=== PATIENT | male | born 1945 | race Caucasian/White ===

== ENCOUNTER 2023-12-09 09:05 | Day surgery (SDC) | payer MEDICARE, SELFPAY ==
[2023-12-09] VITALS (27 sets, daily range): BP systolic 119–153; BP diastolic 62–85; PULSE 62–94; RESP 14–16; TEMP 35.8–36.6; O2SAT 90–99; BMI 25.7
--- OUTSIDE RECORDS SUMMARY | 2023-12-09 09:08 | XMS_ITS | Encounter Summary ---
Author Name Unknown Organization [facility] Address [address] [place] [address] Care Team Providers Care Painting Contractor Name Role Phone Winston Fan M.D. Primary Care Kyle jaychilo Encounter Details Date Type Department Care Team (Late st Contact Info) Description 10/15/2023 Orders Only Department of Orthopedic Surgery in [place], [place] [address] [place] [address] [phone] Mera Torres P.A.-Erlin., P.A. [address] [phone] Social History Tobacco Use Types Packs/Day Years Used Date Smoking Tobacco: Former Cigarettes 0 07/28/1965 - 07/28/1982 Passive Smoke Exposure: Past Smokeless Tobacco: Never Alcohol Use Standard Drinks/Week Comments No 0 (1 standard drink = 0.6 oz pur e alcohol) Humiliation, Afraid, Rape, and Kick questionnair e Answer Date Recorded Within the last year, have y ou been afraid of your partner or ex-partner? No 10/28/2022 Within the last year, have y ou been humiliated or emotionally abused in other ways by your partner or ex-partner? No Within the last year, have y ou been kicked, hit, slapped, or otherwise physically hurt by your partner or ex-partner? No 10/28/2022 Within the last year, have y ou been raped or forced to have any kind of sexual activity by your partner or ex-partner? No 10/28/2022 Social Connection and Isolat ion Panel [NHANES] Answer Date Recorded In a typical week, how many times do you talk on the phone with family, friends, or neighbors? Three times a week 10/28/2022 How often do you get togethe r with friends or relatives? Twice a week 10/28/2022 How often do you attend chur ch or taoist services? More than 4 times per year 10/28/2022 Do you belong to any clubs o r organizations such as jainism groups, unions, fraternal or athletic groups, or school groups? No 10/28/2022 How often do you attend meet ings of the clubs or organizations you belong to? Never 10/28/2022 Are you , , di vorced, , never , or living with a partner? 10/28/2022 AUDIT-C Answer Date Recorded Q1: How often do you have a drink containing alc ohol? Never 10/28/2022 Average Number of Drinks Not on file 023 Frequency of Binge Drinking Not on file 09/2022 Overall Financial Resource Strain (CARDIA) Answe r Date Recorded How hard is it for you to pa y for the very basics like food, housing, medical care, and heating? Not hard at all 10/28/2022 PHQ-2 Answer Date Recorded PHQ-2 Score 0 09/29/2023 [facility] Occupat ional [facility] - Occupational Stress Questionnaire Answer Date Recorded Do you feel stress - tense, restless, nervous, or anxious, or unable to sleep at night because your mind is troubled all the time - these days? Not at all 10/28/2022 Exercise Vital Sign Answer Date Recorde d On average, how many days pe r week do you engage in moderate to strenuous exercise (like a brisk walk)? 7 days 10/28/2022 On average, how many minutes do you engage in exercise at this level? 30 min 10/28/2022 Hunger Vital Sign Answer Date Recorded Within the past 12 months, y ou worried that your food would run out before you got the money to buy more. Never true 10/29/19 Within the past 12 months, t he food you bought just didn't last and you didn't have money to get more. Never true 10/28/2022 PRAPARE - Transportation Answer Date Re corded In the past 12 months, has l ack of transportation kept you from medical appointments or from getting medications? No 11/26 In the past 12 months, has l ack of transportation kept you from meetings, work, or from getting things needed for daily living? No 12/23/2022 Housing Stability Vital Sign Answer Kameron e Recorded In the last 12 months, was t here a time when you were not able to pay the mortgage or rent on time? No 10/28/2022 In the last 12 months, how many places have you lived? 1 10/28/2022 In the last 12 months, was t here a time when you did not have a steady place to sleep or slept in a longterm (including now)? No 10/28/2022 Nutrition Answer Date Recorded Nutrition: EVOO Fat Source Yes 10/28 On average, how many serving s of fruits and vegetables do you eat per day (serving size is equal to 1 cup or approximately the size of a tennis ball)? 4-5 10/28/2022 Dental Answer Date Recorded Dental: Regular Dentist Yes 10/17/19 Employment Answer Date Recorded Employment status Retired 10/28/2022 Education Answer Date Recorded What is the highest level of school you have completed or the highest degree you have received? Bachelor's degree (e.g., BA, AB, BS) 01/31/2019 Sex and Gender Information Value Date Recorded Sex Assigned at Male 05/18/2018 7:14 PM CDT Gender Identity Male 05/18/2018 7:14 PM CDT Sexual Orientation Straight 05/18/2018 7: 14 PM CDT documented as of this encounter Plan of Treatment Upcoming Encounters Date Type Department Care Team (Late st Contact Info) Description 12/31/2023 10:10 AM CDT Appointment Department of Laboratory Medicine in [address] [phone] Winston Fan M.B.BEdna, MChiquis [address] [place] [address] [phone] 01/06/2024 2:30 PM CDT Office Visit Department of Ophthalmology in [place], [place] [address] [place] [phone] Rey Pabon Jr., M.D. [address] [place] [phone] documented as of this encounter Visit Diagnoses Not on filedocumented in this encounter Additional Health Concerns Assessment Noted Time PHQ-9 Depression Total Score: 0 06/23/20 19 2:38 PM POSTPARTUM NURSE documented as of this encounter Care Teams Painting Contractor Relationship Specialty Start Date End Date Winston Fan M.B.B.SMelinda, MMeg. [address] [facility] [place] [phone] PCP - General Family Medicine 06/20/23 documented as of this encounter
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
--- OUTSIDE RECORDS SUMMARY | 2023-12-09 09:08 | XMS_ITS ---
Author Name Unknown Organization [facility] Address [address] [place] [address] Care Team Providers Care Retort Furnace Helper Name Role Phone Unavailable Unavailable Unavailable Surgery Details Not on file Complications Check Surgery Details section. Procedure Estimated Blood Loss Check Surgery Details section. Procedure Findings Check Surgery Details section. Procedure Specimens Taken Check Surgery Details section.
--- OUTSIDE RECORDS SUMMARY | 2023-12-09 09:08 | XMS_ITS | Clinical Summary ---
Author Name Unknown Organization [facility] Address [address] [place] [address] Care Team Providers Care Marine Equipment Sales Engineer Name Role Phone Winston Fan M.D. Primary Care Kyle riderjuan Source Comments Patient records contain information from all sites at [facility]. For routine questions regarding patient records, call [phone] during business hours, M-F 8:00 AM - 5:00 PM Central Time. Record requests for emergency care only can be directed to [phone] at any time.[facility] Allergies Active Allergy Reactions Criticality Noted Date [...] mouth daily. Active blood sugar diagnostic strips ([employer] Ultra Test Strips)Indications :Diabetes Mellitus Type 2 [...] due to elevated LDL. Atorvastatin stopped in 2019 due to elevated CPK and myalgias. Elevated CPK evaluated by Rheumatology. 01/2019. ALFONSO, inflammatory markers and exam normal. EMGs w no evidence of muscle disease or myositis. Pravastatin was tried after the EMG in 2018. 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 Encounters Date Type Department Care Team Description 11/25/2023 3:37 PM CDT - 11/25/2023 11:59 PM CDT Hospital Encounter Department of Laboratory Medicine in [place], [place] [address] [place] [address] Winston Fan M.B.B.SMelinda, M.DMelinda Preoperative Exam Discharge Disposition: Home or Self Care 11/25/2023 3:00 PM CDT Office Visit Department of [facility], [facility], in [place], [place] [address] [place] [address] Winston Fan M.B.BMelindaSMelinda, M.DMelinda Preoperative Exam (Primary Dx) 10/15/2023 Orders Only Department of Orthopedic Surgery in [place], [place] [address] [place] [address] Mera Torres P.A.-C., P.A. 09/29/2023 10:30 AM RESIN PAINTER Comprehensive Visit Department of Family Medicine, [facility], in [place], [place] [address] [place] [address] Winston Fan M.B.B.S., M.D. Diabetes Mellitus Type 2 (HCC); Benign Prostatic Hyperplasia Without Obstruction; Diabetes Mellitus Type 2 Hyperglycemia (HCC); Chronic Kidney Disease (CKD), Stage 3a Glomerular Filtration Rate (GFR) 45 To 59 (HCC) 09/25/2023 1:27 PM RESIN PAINTER - 09/25/2023 11:59 PM RESIN PAINTER Hospital Encounter Department of Laboratory Medicine in [address] [phone] Cata Vazquez P.A.-C. Diabetes Mellitus Type 2 (HCC) Discharge Disposition: Home or Self Care from Last 3 Months Immunizations Name Administration Dates Next Due DT, [...] quad (FLUZONE/FLUARIX) (6 months and older)(PF) 05/13/2009 Family History Medical History Relation Name Comments Allergies Brother 1 Danial Hay fever Bipolar disorder Brother 1 Danial Leukemia Brother 2 Don stem cell trans plant Bladder cancer Brother 3 Og (Andrew) No Known Problems Daughter Emma Blindness Father Piter at end of life Diabetes Father Piter late onset Prostate cancer Father Piter Rheum arthritis Father Piter Heart failure Mother Afshan Hyperlipidemia Mother Afshan Hypertension Mother Afshan Lymphoma Mother Afshan Other cancer Mother Afshan Thyroid cancer Thyroid cancer Mother Afshan No Known Problems Sister Debbie Hay fever Son 1 Patricia No Known Problems Son 2 Kirk Relation Name Status Comments Brother 1 Danial Alive Brother 2 Don Alive Brother 3 Og (Andrew) Alive Daughter Emma Alive Father Piter Mother Afshan Sister Debbie Alive Son 1 Patricia Alive Son 2 Kirk Alive Social History Tobacco Use Types Packs/Day Years Used Date Smoking Tobacco: Former Cigarettes 0 07/28/1965 - 07/28/1982 Passive Smoke Exposure: Past Smokeless Tobacco: Never Tobacco Cessation:Counseling Given: Not Answered Alcohol Use Standard Drinks/Week Comments No 0 (1 standard drink = 0.6 oz pur e alcohol) [facility] [employer] Answer Date Recorded In the past 12 months has e [employer], gas, oil, or water [employer] threatened to shut off services in your [...] often do you attend chur ch or synagogue services? More than 4 times per year 10/28/2022 Do you belong to any clubs o r organizations such as quaker groups, unions, fraternal or athletic groups, or [...] Answer Date Recorded PHQ-2 Score 0 09/29/2023 [facility] of Occupat ional Health - Occupational Stress [...] money to buy more. Never true 11/19/19 24 Within the past 12 months, t he [...] your living situation today? I have a [facility] place to live 11/19/2023 Education Answer Date [...] CDT Appointment Department of Laboratory Medicine in [place], [place] [address] [place] [phone] Winston Fan M.B.B.SMelinda, M.D. [address] [place] [phone] 01/06/2024 2:30 PM CDT Office Visit Department of Ophthalmology in [place], [place] [address], [place] [address] Rey Pabon Jr., M.D. [address] [place] [address] Health Maintenance Due Date Last Done Comments Hepatitis B Vaccines (1 of 3 - Risk 3-dose series) 2007 DTaP,Tdap,and Td Vaccines (3 - Td or Tdap) 04/15/2023 04/15/2013, 05/11/2003 COVID-19 Vaccine (2022-2 4 season) 2023 05/08/2023, 04/26/2022, 02/04/2022, Additional history exists Creatinine Level (Kidney Fun ction Test) 09/26/2023 09/25/2022, 11/01/2021, 04/26/2021, Additional history exists Dilated Eye Exam 12/31/2023 12/30/2022, 08/2021, 08/29/2020, Additional history exists Hemoglobin A1C 03/25/2024 09/25/2023, 02/26, 09/25/2022, Additional history exists Visit: Medicare Annual Wellness 03/28/2024 3 Urine Albumin 06/17/2024 06/17/2023, 12/0 07/2021, 04/26/2021, Additional history exists Diabetic Office Visit with F oot Exam 09/28/2024 09/29/2023, 11/05/2021, 10/11/2020, Additional history exists Visit: Chronic Disease, age 18+ 09/28/2024 Office Visit for Blood Press ure Check / Re-check 11/24/2024 11/25/2023 Colonoscopy Discontinued 12/05/2016 Colonoscopy Discontinued 12/05/2016 Colorectal Cancer Screening Discontinued Colorectal Cancer Surveillance Discontinued Hepatitis C Screening Completed 05/22/2018 Pneumococcal vaccine (65+ years) Completed 05/22/2018, 06/21/2015, 08/12/2006 Zoster Vaccines Completed 02/04/2022, 09/25, 06/12/2014 Influenza Vaccine Completed 05/05/2023, , 04/30/2021, Additional history exists Depression Screening (Annual PHQ-2) Completed 09/29/2023, 09/29/2023 Fall Risk Screen (Annual) Completed 09/29/[address] Colonography Discontinued Cologuard Discontinued FIT Discontinued Medical Devices Implanted Type Area Pig Breeder Device Identifier Shelf Expiration Date Model / Serial / Lot Mesh Or Patch Mesh or Patch Bilateral: Abdomen Description:Inguinal hernia repairs x 2 Procedures Procedure Name Priority Date/Time Associated Diagnosis Comments ECG Routine 11/25/2023 3:44 PM CDT Preoperative Exam HEMOGLOBIN A1C, B Routine 09/25/2023 1:3 3 PM RESIN PAINTER Diabetes Mellitus Type 2 (HCC) ALBUMIN, RANDOM, U Routine 06/17/2023 2: 33 PM RESIN PAINTER Diabetes Mellitus Type 2 (HCC) BASIC METABOLIC PANEL, S/P Routine 09/25/2022 11:40 AM RESIN PAINTER Diabetes Mellitus Type 2 (HCC) HCV AB SCRN W/REFLEX TO HCV PCR, S Routine 05/22/2018 12:31 PM CDT Screening Test Laboratory from Last 3 Months or Most Recently Relevant to Health Maintenance Results * ECG 12 Lead (11/25/2023 3:44 PM CDT) Ventricular Rate ECG/Min 64 BPM MUSE ME Interval 160 ms MUSE QRSD Interval 142 ms MUSE QT Interval 426 ms MUSE QTC Interval 439 ms MUSE P [place] 66 degrees MUSE R [place] 49 degrees MUSE T Wave [place] 4 degrees MUSE 11/25/2023 3:44 PM CDT [...] Lehman Winston Marshall M.D. ECG ORD ERABLES Performing Organization Address City/[facility]/ZIP Co de Phone Number MUSE NA * (ABNORMAL) Hemoglobin A1c (09/25/2023 1:33 PM RESIN PAINTER) Hemoglobin A1c, B 7.2(H) 4.2 - 5.6 % 09/25/2023 6:13 PM RESIN PAINTER OWAT Comment: Hemoglobin A1c values greater than or equal to 6.5 percent are diagnostic for diabetes mellitus. ??Diagnosis should be confirmed by repeat testing. ??In diabetic patients, HbA1c goals should be discussed with healthcare provider. Blood (Blood, Venous) 09/25/2023 1:33 PM RESIN PAINTER 09/25/2023 5:49 PM RESIN PAINTER Cata Vazquez P.A.-C. LAB BLOOD ADD-O N Performing Organization Address [facility] Co de Phone Number [facility] [address] [place] [address], [facility] OWAT [facility] in [place] [address] [place] [address] * Albumin, Random, Urine (06/17/2023 2:33 PM RESIN PAINTER) Microalbumin <12.0 mg/L 06/17/2023 4:41 PM RESIN PAINTER OWAT Comment:If clinically indica valdo, contact the lab for additional testing. Creatinine 73 mg/dL 06/17/2023 4:41 PM RESIN PAINTER OWAT Albumin/Creatinine Ratio <16 <17 mg/g 06/17/2023 4:41 PM RESIN PAINTER OWAT Comment: This ratio may not correspond with the reference range because one or both of the values used to calculate the ratio was above or below the quantification limits. Urine (Urine, Midstream) 06/17/2023 2:33 PM RESIN PAINTER 06/17/2023 3:41 PM RESIN PAINTER Cata Vazquez P.A.-C. LAB URINE ORDER WILLEM [facility] [address] [place] [address], [facility] OWAT [facility] in [place] [address] [place] [address] * (ABNORMAL) Basic Metabolic Panel (09/25/2022 11:40 AM RESIN PAINTER) Potassium, P 5.3(H) 3.6 - 5.2 mmol/L 09/25/2022 1:55 PM RESIN PAINTER OWAT Sodium, P 140 135 - 145 mmol/L 09/25/2022 1:55 PM RESIN PAINTER OWAT Chloride, P 105 98 - 107 mmol/L 09/25/2022 1:55 PM RESIN PAINTER OWAT Bicarbonate, P 26 22 - 29 mmol/L 09/25/2022 1:55 PM RESIN PAINTER OWAT Anion Gap, P 9 7 - 15 09/25/2022 1:55 PM RESIN PAINTER OWAT BUN (Blood Urea Nitrogen), P 22 8 - 24 mg/dL 09/25/2022 1:55 PM RESIN PAINTER OWAT Creatinine 1.17 0.74 - 1.35 mg/dL 09/25/2022 1:55 PM RESIN PAINTER OWAT Estimated GFR (eGFR) 65 >=60 mL/min/BSA 09/25/2022 1:55 PM RESIN PAINTER OWAT Comment: Estimated GFR calculated using the 2020 CKD_EPI creatinine equation. Calcium, Total, P 9.6 8.8 - 10.2 mg/dL 09/25/2022 1:55 PM RESIN PAINTER OWAT Glucose, P 111 70 - 140 mg/dL 09/25/2022 1:55 PM RESIN PAINTER OWAT Blood (Blood, Venous) 09/25/2022 11:40 AM RESIN PAINTER 09/25/2022 1:17 PM RESIN PAINTER Cata Vazquez P.A.-C. LAB BLOOD ADD-O N [facility] [address] [facility] [place] [address], [place] OWAT [facility] in [place] [address] [facility] [place] [address] * HCV Ab Scrn w/Reflex to HCV PCR, Serum (05/22/2018 12:31 PM CDT) HCV Ab Screen, S Negative Negative 05/23/2018 9:19 AM CDT [facility] Comment:Mrdsjs-wh-smhetq rat io is <1.00. Blood (Blood, Venous) 05/22/2018 12:31 PM CDT 05/23/2018 6:57 AM CDT Terra Edgar M.D. LAB MICROBIOLOGY - B LOOD ORDERABLES [facility] [address] [place] [address] from Last 3 Months or Most Recently Relevant to Health Maintenance Care Teams Marine Equipment Sales Engineer Relationship Specialty Start Date End Date Winston Fan M.B.BMelindaSMelinda, MMeg. [address] [place] [address] [place] [phone] PCP - General Family Medicine 06/20/23
--- OUTSIDE RECORDS SUMMARY | 2023-12-09 09:08 | XMS_ITS | Encounter Summary ---
Author Name Unknown Organization [facility] Address [address] [place] [address] Care Team Providers Care Master Electrician Name Role Phone Winston Fan M.D. Primary Care P shellie Reason for Referral * Outpatient (Routine) - Closed Specialty Diagnoses / Procedures Referred By Richardson t Referred To Contact Diagnoses Preoperative Exam Procedures ECG 12 Lead Winston Fan M.B.B.S., M.D. [address] [place] [address] [facility] Referral ID Status Reason Start Date Expiration Date Visits Re quested Visits Authorized [id number] Closed 11/25/2023 11/24/2024 1 1 Reason for Visit * Outpatient (Routine) - Closed Specialty Diagnoses / Procedures Referred By Richardson jules Referred To Contact Diagnoses Preoperative Exam Procedures ECG 12 Lead Winston Fan M.B.B.S., M.D. [address] [place] [address] [facility] Referral ID Status Reason Start Date Expiration Date Visits Re quested Visits Authorized [id number] Closed 11/25/2023 11/24/2024 1 1 Encounter Details Date Type Department Care Team (Latest Contact Info) Description 11/25/2023 3:37 PM CDT - 11/25/2023 11:59 PM CDT Hospital Encounter Department of Laboratory Medicine in [place], [place] [address] [facility] [place] [phone] Winston Fan M.B.B.S., M.D. [address] [facility] [address] Preoperative Exam Discharge Disposition: Home or Self Care Social History Tobacco Use Types Packs/Day Years Used Date Smoking Tobacco: Former Cigarettes 0 07/28/1965 - 07/28/1982 Passive Smoke Exposure: Past Smokeless Tobacco: Never Alcohol Use Standard Drinks/Week Comments No 0 (1 standard drink = 0.6 oz pur e alcohol) [facility] [employer] Answer Date Recorded In the past 12 months has [employer], gas, oil, or water [employer] threatened to shut off services in your [...] week 10/28/2022 How often do you attend [facility] or oriental orthodox services? More than 4 times per year 10/28/2022 Do you belong to any clubs o r organizations such as mu-ism groups, unions, fraternal or athletic groups, or [...] Answer Date Recorded PHQ-2 Score 0 09/29/2023 [facility] of Occupat ional Health - Occupational [...] PM CDT documented as of this encounter Medications at Time of Discharge Medication Sig Dispensed Refills Start Date End Date aspirin [address] tablet Take 81 mg by mouth daily. blood sugar diagnostic strips ([employer] Ultra Test Strips)Indications:Paty betes Mellitus Type 2 (HCC) USE 1 STRIP TO CHECK GLUCOSE ONCE DAILY 100 each 3 05/13/2023 COQ10, UBIQUINOL, ORAL Take 300 mg by mouth daily. cyanocobalamin (vitamin B-12) 50 mcg tablet Take 1 tablet (50 mcg total) by mouth daily. 90 tablet 3 05/01/2021 ezetimibe (ZETIA) 10 mg tabletIndications:Hype rlipidemia Take 1 tablet by mouth once daily 90 tablet 06/19/2023 finasteride (PROSCAR) 5 mg tabletIndications:Gómez gn Prostatic Hyperplasia Without Obstruction Take 1 tablet (5 mg total) by mouth daily. 90 tablet 3 09/29/2023 09/28/2024 Jardiance 25 mg tabletIndications:Diab etes Mellitus Type 2 (HCC) TAKE 1 TABLET BY MOUTH IN THE MORNING BEFORE BREAKFAST 90 tablet 3 02/04/2023 lancing device (BD LANCET DEVICE) misc 1 each daily. 1 each 07/03/2018 metFORMIN (GLUCOPHAGE) 1,000 mg tabletIndications:Diab etes Mellitus Type 2 (HCC) take 1 tablet by mouth twice daily with meals 180 tablet 3 08/08/2023 naproxen sodium (ALEVE/ANAPROX) 220 mg tablet Take 220 mg by mouth as needed for pain. tamsulosin (FLOMAX) 0.4 mg 24 hr capsuleIndications:Anoop ign Prostatic Hyperplasia Without Obstruction Take 2 capsules (0.8 mg total) by mouth daily. 180 capsule 3 09/29/2023 documented as of this encounter Plan of Treatment Upcoming Encounters Date Type Department Care Team (Late st Contact Info) Description 12/31/2023 10:10 AM CDT Appointment Department of Laboratory Medicine in [place], [place] [address] [place] [phone] Winston Fan M.B.B.S., M.D. [address] [place] [phone] 01/06/2024 2:30 PM CDT Office Visit Department of Ophthalmology in [place], [place] [address], [place] [phone] Rey Pabon Jr., M.D. [address] [address] documented as of this encounter Procedures Procedure Name Priority Date/Time Associated Diagnosis Comments ECG Routine 11/25/2023 3:44 PM CDT Preoperative Exam documented in this encounter Results * ECG 12 Lead (11/25/2023 3:44 PM CDT) Ventricular Rate ECG/Min 64 BPM MUSE DE Interval 160 ms MUSE QRSD Interval 142 ms MUSE QT Interval 426 ms MUSE QTC Interval 439 ms MUSE P [place] 66 degrees MUSE R [place] 49 degrees MUSE T Wave [place] 4 degrees MUSE 11/25/2023 3:44 PM CDT [...] Marshall M.D. ECG ORD ERABLES MUSE NA documented in this encounter Visit Diagnoses Diagnosis Preoperative Exam documented in this encounter Additional Health Concerns Assessment Noted Time PHQ-9 Depression Total Score: 0 06/23/20 19 2:38 PM EQUIPMENT HIRE MANAGER documented as of this encounter Care Teams Master Electrician Relationship Specialty Start Date End Date Winston Fan M.B.B.S., M.D. [address] [place] [phone] PCP - General Family Medicine 06/20/23 documented as of this encounter
--- OUTSIDE RECORDS SUMMARY | 2023-12-09 09:08 | XMS_ITS | Encounter Summary ---
Author Name Unknown Organization [facility] Address [address] [place] [address] Care Team Providers Care Exchange Operator Name Role Phone Winston Fan M.D. Primary Care Kyle jaychilo Encounter Details Date Type Department Care Team (Latest Contact Info) Description 09/25/2023 1:27 PM PAPER ROLLER - 09/25/2023 11:59 PM PAPER ROLLER Hospital Encounter Department of Laboratory Medicine in [place], [place] [address] [place] [phone] Cata Vazquez P.A.-C. [address] [place] [phone] Diabetes Mellitus Type 2 (HCC) Discharge Disposition: Home or Self Care Social [...] often do you attend chur ch or muslim services? More than 4 times per year 10/28/2022 Do you belong to any clubs o r organizations such as worship groups, unions, fraternal or athletic groups, or [...] PHQ-2 Answer Date Recorded PHQ-2 Score 0 09/25/2023 [facility] of Occupat ional Health - Occupational [...] place to sleep or slept in a half-way (including now)? No 10/28/2022 Nutrition Answer Date [...] by mouth daily. blood sugar diagnostic strips ([employer] Ultra Test Strips)Indications:Paty betes Mellitus Type 2 [...] by mouth once daily 90 tablet 06/19/2023 Jardiance 25 mg tabletIndications:Diab etes Mellitus Type [...] mg by mouth as needed for pain. finasteride (PROSCAR) 5 mg tabletIndications:Gómez gn Prostatic Hyperplasia Without Obstruction Take 1 tablet by mouth once daily 90 tablet 3 04/04/2023 09/29/2023 tamsulosin (FLOMAX) 0.4 mg 24 hr capsule Take 2 capsules by mouth once daily 180 capsule 3 08/24/2023 09/29/2023 documented as of this encounter Miscellaneous Notes * Result Encounter Note - Winston Fan M.B.B.S., M.D. - 09/26/2023 9:03 AM CST A1c shows no significant change from 6 months ago. Please continue with a low- carbohydrate diet. Please continue to be consistent with medications and exercise as tolerated. R ROLLER documented in this encounter Plan of Treatment Upcoming Encounters Date Type Department Care Team (Late st Contact Info) Description 12/31/2023 10:10 AM CDT Appointment Department of Laboratory Medicine in [address] [phone] Winston Fan M.B.B.S., M.D. [address] [place] [address] 01/06/2024 2:30 PM CDT Office Visit Department of Ophthalmology in [place], [place] [address] [place] [address] Rey Pabon Jr., M.D. [address] [place] [address] documented as of this encounter Procedures Procedure Name Priority Date/Time Associated Diagnosis Comments HEMOGLOBIN A1C, B Routine 09/25/2023 1:3 3 PM PAPER ROLLER Diabetes Mellitus Type 2 (HCC) documented in this encounter Results * (ABNORMAL) Hemoglobin A1c (09/25/2023 1:33 PM PAPER ROLLER) Hemoglobin A1c, B 7.2(H) 4.2 - 5.6 % 09/25/2023 6:13 PM PAPER ROLLER OWAT Comment: Hemoglobin A1c values greater than or equal to 6.5 percent are diagnostic for diabetes mellitus. ??Diagnosis should be confirmed by repeat testing. ??In diabetic patients, HbA1c goals should be discussed with healthcare provider. Blood (Blood, Venous) 09/25/2023 1:33 PM PAPER ROLLER 09/25/2023 5:49 PM PAPER ROLLER Cata Vazquez P.A.-C. LAB BLOOD ADD-O N [facility] [address] [place] [address], [facility] OWAT [facility] [place] [address] [place] [address] documented in this encounter Visit Diagnoses Diagnosis Diabetes Mellitus Type 2 (HCC) documented in this encounter Additional Health Concerns Assessment Noted Time PHQ-9 Depression Total Score: 0 06/23/20 19 2:38 PM PAPER ROLLER documented as of this encounter Care Teams Exchange Operator Relationship Specialty Start Date End Date Winston Fan M.B.BMelindaSMelinda, M.D. [address] [place] [address] [place] [phone] PCP - General Family Medicine 06/20/23 documented as of this encounter
--- OUTSIDE RECORDS SUMMARY | 2023-12-09 09:08 | XMS_ITS | Encounter Summary ---
Author Name Unknown Organization [facility] Address [address] [place] [address] Care Team Providers Care Fast Foods Worker Name Role Phone Winston Fan M.D. [facility] Reason for Referral * Outpatient (Routine) - Closed Specialty Diagnoses / Procedures Referred By Richardson jules Referred To Contact Diagnoses Preoperative Exam Procedures ECG 12 Lead Winston Fan M.B.B.S., M.D. [address] [place] [phone] [facility] Referral ID Status Reason Start Date Expiration Date Visits Re quested Visits Authorized [id number] Closed 11/25/2023 11/24/2024 1 1 Reason for Visit * Reason Comments Pre-op Exam Hip surgery (right) at the [facility] on 12/09/[address] Vasques. Fax notes to: [phone]. * Appointment Request (Routine) - Closed Specialty Diagnoses / Procedures Referred By Richardson jules Referred To Contact Family Medicine Referral ID Status Reason Start Date Expiration Date Visits Re quested Visits Authorized [id number] Closed 11/04/2023 11/03/2024 1 1 Encounter Details Date Type Department Care Team (Late st Contact Info) Description 11/25/2023 3:00 PM CDT Office Visit Department of Family Medicine, [facility], in [place], [place] [address] [facility] [phone] Winston Fan M.B.B.S., M.D. [address] [facility] [place] [phone] Preoperative Exam (Primary Dx) Social History Tobacco Use Types Packs/Day Years Used Date Smoking Tobacco: Former Cigarettes 0 07/28/1965 - 07/28/1982 Passive Smoke Exposure: Past Smokeless Tobacco: Never Tobacco Cessation:Counseling Given: Not Answered Alcohol Use Standard Drinks/Week Comments No 0 (1 standard drink = 0.6 oz pur e alcohol) [facility] [employer] Answer Date Recorded In the past 12 months has e [employer], gas, oil, or water [employer] threatened to shut off services in your [...] often do you attend chur ch or faith services? More than 4 times per year 10/28/2022 Do you belong to any clubs o r organizations such as christian groups, unions, fraternal or athletic groups, or [...] Answer Date Recorded PHQ-2 Score 0 09/29/2023 [facility] - Occupational Stress Questionnaire Answer Date Recorded [...] your living situation today? I have a [place] place to live 11/19/2023 Education Answer [...] PM CDT documented as of this encounter Last Filed Vital Signs Vital Sign Reading [...] oz) 11/25/2023 2:53 P M CDT Height - - Body Mass Index 27.04 05/06/2023 1:46 PM CDT documented in this encounter Patient Instructions * Patient Instructions* Winston Fan M.B.B.S., M.D. - 11/25/2023 3:00 PM CDT Fasting: Must be NPO for 8 hours preoperatively. (Nothing to eat after dinner). Hold Jardiance the morning of surgery. Hold metformin 48 hours prior to surgery and restart 48 hours after surgery. Hold aspirin 7 days prior to surgery. Please avoid Naproxen for 5 days prior to surgery. documented in this encounter H&P Notes * Winston Fan M.B.B.S., M.D. - 11/25/2023 3:00 PM CDT Adult PRE-OP Evaluation SUBJECTIVE HISTORY OF PRESENT ILLNESS Raymond Olmstead, 1945 presents for pre-operative evaluation and assessment as requested byDr. Vasques. Proposed procedure: Right hip replacement Date of Surgery/ Procedure: 12/09/2023 Hospital/Surgical Facility: [place] [address] Phone: Primary Physician: Rolando Purcell M.D. Type of Anesthesia Anticipated: General anesthesia History of anesthesia complications: NONE} History of abnormal bleeding: NONE History of blood transfusions: NONE PREOPERATIVE QUESTIONS: NO - Do you have a history of heart attack, stroke, stent, bypass or surgery on an artery in the head, neck, heart or legs? NO - Do you ever have any pain or discomfort in your chest? NO - Do you have a history of Congestive Heart Failure? NO - Are you troubled by shortness of breath when: walking on the level/ up a slight hill/ at night? NO - Does your chest ever sound wheezy or whistling? NO - Do you currently have a cold, bronchitis or other respiratory infection? NO - Have you had a cold, bronchitis or other respiratory infection within the last 2 weeks? NO - Do you usually have a cough? NO - Do you sometimes get pains in the calves of your legs when you walk? NO - Do you or anyone in your family have previous history of blood clots? NO - Do you or does anyone in your family have a serious bleeding problem such as prolonged bleeding following surgeries or cuts? NO - Have you ever had problems with anemia or been told to take iron pills? NO - Have you had any abnormal blood loss such as black, tarry or bloody stools, or abnormal vaginal bleeding? NO - Have you ever had a blood transfusion? NO - Have you or any of your relatives ever had problems with anesthesia? NO - Do you have sleep apnea, excessive snoring or daytime drowsiness? NO - Do you have any prosthetic heart valves? NO - Do you have prosthetic joints? NO - Is there any chance that you may be ? Patient Active Problem List Diagnosis Diabetes Mellitus Type 2 (HCC) Hyperlipidemia Smoking Tobacco Use Personal History Benign Prostatic Hyperplasia Without Obstruction Screening Colon Cancer Average Risk Chronic Kidney Disease (CKD), Stage 3a Glomerular Filtration Rate (GFR) 45 To 59 (HCC) Elevated Prostate-Specific Antigen Body Mass Index 31.0 To 31.9 Adult Paresthesias Hand Diabetes Mellitus Type 2 Hyperglycemia (HCC) Current Outpatient Medications Medication Sig Dispense Refill aspirin [address] tablet Take 81 mg by mouth daily. blood sugar diagnostic strips (MediSensuch Ultra Test Strips) USE 1 STRIP TO CHECK GLUCOSE ONCE DAILY 100 each 3 COQ10, UBIQUINOL, ORAL Take 300 mg by mouth daily. cyanocobalamin (vitamin B-12) 50 mcg tablet Take 1 tablet (50 mcg total) by mouth daily. 90 tablet 3 ezetimibe (ZETIA) 10 mg tablet Take 1 tablet by mouth once daily 90 tablet 0 finasteride (PROSCAR) 5 mg tablet Take 1 tablet (5 mg total) by mouth daily. 90 tablet 3 Jardiance 25 mg tablet TAKE 1 TABLET BY MOUTH IN THE MORNING BEFORE BREAKFAST 90 tablet 3 lancing device (BD LANCET DEVICE) misc 1 each daily. 1 each 0 metFORMIN (GLUCOPHAGE) 1,000 mg tablet take 1 tablet by mouth twice daily with meals 180 tablet 3 naproxen sodium (ALEVE/ANAPROX) 220 mg tablet Take 220 mg by mouth as needed for pain. tamsulosin (FLOMAX) 0.4 mg 24 hr capsule Take 2 capsules (0.8 mg total) by mouth daily. 180 capsule3 No current facility-administered medications for this visit. OTC products: None, except as noted above Allergies Allergen Reactions Lipitor [Atorvastatin] Myalgia Pravastatin Myalgia Elevated CK Latex Allergy:NO REVIEW OF SYSTEMS GENERAL: No weight gain, no weight loss, no fever in past month, no chills, no sweats, no fatigue. HEENT: No blurred vision, no double vision, no eye pain, no sinus problems, no hoarseness, no difficulty swallowing, no mouth sores, no diminished hearing, no ringing in ears, no enlarged glands. PULMONARY: No shortness of breath, no cough, no wheezing, no sputum, no hemoptysis. CARDIAC: No valve problems, no chest pain, no chest pressure, no rapid beating, no irregular beating, no dependent edema, pain in calves or with walking, no difficulty moving arms and legs. GI: No heartburn, no nausea, no vomiting, no stomach trouble, no constipation, no diarrhea, no blood in BMs, no change in BMs. : No burning/pain with urination, no difficulty starting stream, no difficulty emptying bladder, no excessive urination. MUSCULOSKELETAL: No joint pain, no joint swelling, no joint stiffness, no muscle pain, no muscle stiffness, no back pain, no back stiffness. SKIN: No skin rashes, no skin sores, no change in moles. NEURO: No significant headaches, no slurred speech, no seizures, no dizziness, no loss of consciousness, no memory loss. Social History Socioeconomic History Marital status: Highest education level: Bachelor's degree (e.g., BA, AB, BS) Tobacco Use Smoking status: Former Current packs/day: 0.00 Types: Cigarettes Start date: 07/28/1965 Quit date: 07/28/1982 Years since quittin.3 Passive exposure: Past Smokeless tobacco: Never Vaping Use Vaping status: never used Substance and Sexual Activity Alcohol use: No Drug use: No Sexual activity: Not Currently Partners: Female control/protection: Vasectomy Social Determinants of Health Food Insecurity: No Food Insecurity (11/19/2023) Hunger Vital Sign Worried About Running Out of Food in the Last Year: Never true Ran Out of Food in the Last Year: Never true Transportation Needs: No Transportation Needs (11/19/2023) PRAPARE - Transportation Lack of Transportation (Medical): No Lack of Transportation (Non-Medical): No Physical Activity: Patient Declined (11/19/2023) Exercise Vital Sign Days of Exercise per Week: Patient declined Minutes of Exercise per Session: Patient declined Intimate Partner Violence: Not At Risk (10/28/2022) Humiliation, Afraid, Rape, and Kick questionnaire Fear of Current or Ex-Partner: No Emotionally Abused: No Physically Abused: No Sexually Abused: No Housing Stability: Low Risk (11/19/2023) Housing Stability Housing: Living Situation: I have a steady place to live OBJECTIVE VITAL SIGNS BP 114/67 (BP Location: Left arm, Patient Position: Sitting, Cuff Size: Regular) Pulse 75 Temp (!) 35.8 ??C (Temporal) Resp 16 Wt 72.2 kg SpO2 96% BMI 27.04 kg/m?? PHYSICAL EXAMINATION GENERAL: Patient is in no distress. Capable of full communication without difficulty. Patient is polite and cooperative. Appropriately dressed and normal hygiene. HEENT: Normocephalic. EOMI, PERRLA, Canals patent, TMs normal. Oropharynx without lesion of mucosa.Pharyngeal rises symmetrically without exudate. NECK: No nodes, no thyromegaly. No bruit auscultated. HEART: Regular rate and rhythm. No murmurs, gallops or rubs noted. LUNGS: Clear to auscultation bilaterally. No expiratory wheeze. No accessory muscles of respirationnoted. ABDOMEN: Nontender to palpation. No hepato-splenomegaly. No mass. Normal bowel sounds in all 4 quadrants. EXTREMITIES: No neurovascular compromise. No cyanosis, clubbing or edema. No abnormal limb length. ENDOCRINE: No purple striae, aviles faces or buffalo hump. NEURO: Grossly intact with no evidence of impairment. SKIN: No lesion, rash or bruising. DIAGNOSTICS EKG findings: Normal sinus rhythm; right bundle branch block RISK ASSESSMENT: Cardiovascular Risk: -Patient is able to perform ADL's without assistance and able to participate in strenous activitieswithout chest pain. -The patient does not have chest pain at rest and with exertion . -Patient does not have a history of congestive heart failure. -The patient does not have a history of stroke and does not have a history of valvular disease. Cardiovascular risk analysis - Diabetes Mellitus, hypertension, hypercholesterolemia/hyperlipidemia Revised cardiac risk index: 0 point, class 1 and risk of 0.4% of major cardiac event Pulmonary Risk: -In terms of risk factors for pulmonary complication, the patient is older than 60 Perioperative Complications: -The patient does not have a history of bleeding or clotting problems in the past. -The patient has not had complications from surgeries -The patient does not have a family history of any anesthesia or surgical complications. ASSESSMENT / PLAN IMPRESSION: Reason for surgery/procedure: Osteoarthritis The proposed surgical procedure is considered INTERMEDIATE(abdominal, most orthopedics and intrathoracic surgery) risk. For above listed surgery and anesthesia: Patient is at MODERATE risk for perioperative/procedure complications. RECOMMENDATIONS: Fasting: Must be NPO for 8 hours preoperatively. (Nothing to eat after dinner). Preop Plan: Patient has been optimized for hip surgery. Medications: Patient should take his regular medications the morning of surgery unless otherwise instructed below. Hold Jardiance the morning of surgery. Hold metformin 48 hours prior to surgery and restart 48 hours after surgery. Hold aspirin 7 days prior to surgery. Please avoid Naproxen for 5 days prior to surgery. Rolando Purcell M.D. Please contact our office if there are any further questions or information required about this patient. documented in this encounter Plan of Treatment Upcoming Encounters Date Type Department Care Team (Late st Contact Info) Description 12/31/2023 10:10 AM CDT Appointment Department of Laboratory Medicine in [place], [place] [address] [place] [phone] Winston Fan M.B.B.S., M.D. [address] [place] [phone] 01/06/2024 2:30 PM CDT Office Visit Department of Ophthalmology in [place], [place] [address] [place] [address] Rey Pabon Jr., M.D. [address] [place] [address] documented as of this encounter Results * ECG 12 Lead (11/25/2023 3:44 PM CDT) Ventricular Rate ECG/Min 64 BPM MUSE NH Interval 160 ms MUSE QRSD Interval 142 ms MUSE QT Interval 426 ms MUSE QTC Interval 439 ms MUSE P [place] 66 degrees MUSE R [place] 49 degrees MUSE T Wave [place] 4 degrees MUSE 11/25/2023 3:44 PM CDT 11/25/2023 4:19 PM CDT Impressions MUSE - 11/25/2023 4:19 PM CDT Normal sinus rhythm Right bundle branch block with secondary ST-T abnormalities When compared with ECG of 02-Jul-2016 08:59, Right bundle branch block is now present Reviewed by ИРИНА Lemhan Narrative Procedure Note Fredrick Diez M.D. - 11/25/2023 IMPRESSION: Normal sinus rhythm Right bundle branch block with secondary ST-T abnormalities When compared with ECG of 02-Jul-2016 08:59, Right bundle branch block is now present Reviewed by ИРИНА Lehman Winston Marshall M.D. ECG ORD ERABLES MUSE NA documented in this encounter Visit Diagnoses Diagnosis Preoperative Exam- Primary Preoperative Exam documented in this encounter Additional Health Concerns Assessment Noted Time PHQ-9 Depression Total Score: 0 06/23/20 19 2:38 PM TAKE [employer] MAN documented as of this encounter Care Teams Fast Foods Worker Relationship Specialty Start Date End Date Winston Fan M.B.B.S., M.D. [address] [place] [address] [place] [phone] PCP - General Family Medicine 06/20/23 documented as of this encounter
--- OUTSIDE RECORDS SUMMARY | 2023-12-09 09:08 | XMS_ITS | Encounter Summary ---
Author Name Unknown Organization [facility] Address [address] [place] [address] Care Team Providers Care Aerial Gunner Name Role Phone Winston Fan M.D. Primary Care Kyle hensley Reason for Referral * Outpatient (Routine) - Authorized Specialty Diagnoses / Procedures Referred By Richardson jules Referred To Contact Family Medicine Diagnoses Diabetes Mellitus Type 2 Hyperglycemia (HCC) Chronic Kidney Disease (CKD), Stage 3a Glomerular Filtration Rate (GFR) 45 To 59 (HCC) Winston Fan M.B.B.S., M.D. [address] [place] [address] [facility] Referral ID Status Reason Start Date Expiration Date V isits Requested Visits Authorized [id number] Authorized 09/29/2023 03/30/2025 1 1 GER FLOAT Reason for Visit * Reason Comments Follow-up Diabetic follow up, labs done on , hip pain but doing physical therapy, no other concerns * Outpatient (Routine) - Closed Specialty Diagnoses / Procedures Referred By Richardson jules Referred To Contact Family Medicine Diagnoses Diabetes Mellitus Type 2 (HCC) Cata Vazquez P.A.-C. [address] [place] [address] [facility] Referral ID Status Reason Start Date Expiration Date Visits Re quested Visits Authorized [id number] Closed 03/26/2023 03/25/2024 1 1 Encounter Details Date Type Department Care Team (Latest Contact Info) Description 09/29/2023 10:30 AM MANAGER FLOAT Comprehensive Visit Department of Family Medicine, [facility], in [place], [place] [address] [place] [phone] Winston Fan M.B.B.S., M.D. [address] [place] [phone] Diabetes Mellitus Type 2 (HCC); Benign Prostatic Hyperplasia Without Obstruction; Diabetes Mellitus Type 2 Hyperglycemia (HCC); Chronic Kidney Disease (CKD), Stage 3a Glomerular Filtration Rate (GFR) 45 To 59 (HCC) Social History Tobacco Use Types Packs/Day Years [...] often do you attend chur ch or shinto services? More than 4 times per year 10/28/2022 Do you belong to any clubs o r organizations such as congregational groups, unions, fraternal or athletic groups, or [...] Answer Date Recorded PHQ-2 Score 0 09/29/2023 [facility] - Occupational [...] money to buy more. Never true 10/29/19 23 Within the past 12 months, t he [...] place to sleep or slept in a [facility]p (including now)? No 10/28/2022 Nutrition Answer Date [...] Sign Reading Time Taken Comments Blood Pressure 116/65 09/29/2023 10:18 AM MANAGER FLOAT Pulse 65 09/29/2023 10:18 AM MANAGER FLOAT Temperature 36.1 ??C (97 ??F) 09/29/2023 10:18 AM MANAGER FLOAT Respiratory Rate 16 09/29/2023 10:18 AM MANAGER FLOAT Oxygen Saturation - - Inhaled Oxygen Concentration - - Weight 73.3 kg (161 lb 9.6 oz) 09/29/2023 10:18 AM MANAGER FLOAT Height - - Body Mass Index 27.45 05/06/2023 1:46 PM CDT documented in this encounter Progress Notes * Winston Fan M.B.B.S., M.Jorge. - 09/29/2023 10:30 AM CST SUBJECTIVE CHIEF COMPLAINT / REASON FOR VISIT Raymond Olmstead is a 78 y.o. male who presents for evaluation of Follow-up (Diabetic follow up, labs done on , hip pain but doing physical therapy, no other concerns ). HISTORY OF PRESENT ILLNESS Raymond Olmstead is a 78-year-old male with a history of type 2 diabetes, BPH and hyperlipidemia. Patient is on metformin and Jardiance. He reports consistency with his medications. He reports blood sugar readings consistently under 130 at home. He is on finasteride and tamsulosin for his prostate. He denies urinary urgency or poor stream. He is still dealing with right hip pain and is currently in physical therapy. He ambulates with a cane to reduce his risk of falls. Today, patient denies chest pain or dizziness. He denies palpitations, orthopnea or PND. He denies fever or chills or changes to bowel habits. He reports consistency with his medications. The following portions of the patient's history were reviewed and updated as appropriate: allergies, current medications, family history, medical history, social history, surgical history, and problem list. REVIEW OF SYSTEMS Pertinent items are noted in HPI. OBJECTIVE VITAL SIGNS BP 116/65 (BP Location: Left arm, Patient Position: Sitting, Cuff Size: Regular) Pulse 65 Temp 36.1 ??C (Temporal) Resp 16 Wt 73.3 kg BMI 27.45 kg/m?? Body mass index is 27.45 kg/m??. PHYSICAL EXAMINATION General appearance: alert, cooperative, and no distress Head: normocephalic, without obvious abnormality Eyes: conjunctivae/corneas clear Neck: no adenopathy and supple, symmetrical, trachea midline Lungs: clear to auscultation bilaterally Heart: regular rate and rhythm Extremities: extremities normal, warm and well perfused Pulses: 2+ and symmetric Neurologic: Alert and oriented X 3, normal strength and tone. Normal symmetric reflexes. Normal coordination and gait. ASSESSMENT / PLAN #1 Diabetes Mellitus Type 2 (HCC) #2 Benign Prostatic Hyperplasia Without Obstruction #3 Diabetes Mellitus Type 2 Hyperglycemia (HCC) #4 Chronic Kidney Disease (CKD), Stage 3a Glomerular Filtration Rate (GFR) 45 To 59 (HCC) Darrell is here for follow-up. 1. A1c has improved to 7.2. Patient will remain on Jardiance and metformin. Will continue with A1c follow-up every 3 months. Patient will maintain a low-carbohydrate diet. 2. Patient is on finasteride and tamsulosin which he will continue. 3. Will go ahead and recheck kidney function in 3 months. 4. For precautions have been discussed today. Patient will continue with a walking cane as needed. GER FLOAT documented in this encounter Plan of Treatment Upcoming Encounters Date Type Department Care Team (Late st Contact Info) Description 12/31/2023 10:10 AM CDT Appointment Department of Laboratory Medicine in [address] [phone] Winston Fan M.B.B.S., M.D. [address] [place] [phone] 01/06/2024 2:30 PM CDT Office Visit Department of Ophthalmology in [place], [place] [address] [phone] Rey Pabon Jr., M.D. [address], [place] [phone] Scheduled Orders Name Type Priority Associated Diagnoses Orde r Schedule Hemoglobin A1c Lab Routine Diabetes Mellitus Type 2 Hyperglycemia (HCC) Expected: 03/31/2024 (Approximate), Expires: 12/29/2024 Hemoglobin A1c Lab Routine Diabetes Mellitus Type 2 Hyperglycemia (HCC) Expected: 12/30/2023 (Approximate), Expires: 12/29/2024 Hemoglobin A1c Lab Routine Diabetes Mellitus Type 2 Hyperglycemia (HCC) Expected: 09/28/2024 (Approximate), Expires: 12/29/2024 Hemoglobin A1c Lab Routine Diabetes Mellitus Type 2 Hyperglycemia (HCC) Expected: 06/30/2024 (Approximate), Expires: 12/29/2024 Basic Metabolic Panel Lab Routine Chronic Kidney Disease (CKD), Stage 3a Glomerular Filtration Rate (GFR) 45 To 59 (HCC) Expected: 12/30/2023 (Approximate), Expires: 12/29/2024 Scheduled Referrals Name Type Priority Associated Diagnoses Orde r Schedule Family Medicine office visit (clinic) Outpatient Referral Routine Diabetes Mellitus Type 2 Hyperglycemia (HCC) Chronic Kidney Disease (CKD), Stage 3a Glomerular Filtration Rate (GFR) 45 To 59 (HCC) Expected: 03/31/2024 (Approximate), Expires: 12/29/2024 documented as of this encounter Visit Diagnoses Diagnosis Diabetes Mellitus Type 2 (HCC) Benign Prostatic Hyperplasia Without Obstruction Diabetes Mellitus Type 2 Hyperglycemia (HCC) Chronic Kidney Disease (CKD), Stage 3a Glomerular Filtration Rate (GFR) 45 To 59 (HCC) documented in this encounter Additional Health Concerns Assessment Noted Time PHQ-9 Depression Total Score: 0 06/23/20 19 2:38 PM MANAGER FLOAT documented as of this encounter Care Teams Aerial Gunner Relationship Specialty Start Date End Date Winston Fan M.B.B.SMelinda, M.Jorge. [address] [place] [phone] PCP - General Family Medicine 06/20/23 documented as of this encounter
--- OUTSIDE RECORDS SUMMARY | 2023-12-09 09:09 | XMS_ITS | Encounter Summary ---
Author Name Unknown Organization [facility] Address [address] [place] [address] Care Team Providers Care Learning Technologist Name Role Phone Winston Fan M.D. Primary Care P shellie Reason for Referral * Outpatient (Routine) - Closed Specialty Diagnoses / Procedures Referred By Contac t Referred To Contact Diagnoses Pain Hip Right Procedures DX Hip And Pelvis Right 2-3 Views Winston Fan M.B.B.S., M.D. [address] [place] [phone] [facility] Region Referral ID Status Reason Start Date Expiration Date Visits Re quested Visits Authorized [id number] Closed 08/19/2023 08/18/2024 1 1 IX ARCHITECT Reason for Visit * Outpatient (Routine) - Closed Specialty Diagnoses / Procedures Referred By Contac t Referred To Contact Diagnoses Pain Hip Right Procedures DX Hip And Pelvis Right 2-3 Views Winston Fan M.B.B.S., M.D. [address] [place] [phone] [facility] Region Referral ID Status Reason Start Date Expiration Date Visits Re quested Visits Authorized [id number] Closed 08/19/2023 08/18/2024 1 1 Encounter Details Date Type Department Care Team (Latest Contact Info) Description 09/02/2023 1:27 PM CITRIX ARCHITECT - 09/02/2023 11:59 PM CITRIX ARCHITECT Hospital Encounter Department of Radiology in [place], [place] [address] [place] [phone] Winston Fan M.B.B.S., Britany. [address] [place] [phone] Pain Hip Right Discharge Disposition: Home or Self Care Social [...] often do you attend chur ch or jehovah's witness services? More than 4 times per year [...] PHQ-2 Answer Date Recorded PHQ-2 Score 0 03/27/2023 [facility] - Occupational Stress [...] place to sleep or slept in a snf (including now)? No 10/28/2022 Nutrition Answer Date [...] by mouth daily. blood sugar diagnostic strips (Hologicuch Ultra Test Strips)Indications:Paty betes Mellitus Type 2 [...] 08/24/2023 09/29/2023 documented as of this encounter Plan of Treatment Upcoming Encounters Date Type Department Care Team (Late st Contact Info) Description 12/31/2023 10:10 AM CDT Appointment Department of Laboratory Medicine in [place], [place] [address] [place] [phone] Winston Fan M.B.B.S., Erasto [address] [place] [phone] 01/06/2024 2:30 PM CDT Office Visit Department of Ophthalmology in [place], [place] [address], [place] [phone] Rey Pabon Jr., M.D. [address], [place] [phone] documented as of this encounter Procedures Procedure Name Priority Date/Time Associated Diagnosis Comments DX HIP AND PELVIS RIGHT 2-3 VIEWS RAD - Routine (most inpatients and all outpatients) 09/02/2023 1:44 PM CITRIX ARCHITECT Pain Hip Right documented in this encounter Results * DX Hip And Pelvis Right 2-3 Views (09/02/2023 1:44 PM CITRIX ARCHITECT) Anatomical Region Laterality Modality Lower Extremity, Pelvis, Hip , Musculoskeletal RST LOS, Musculoskeletal ARZ LOS, Muskuloskeletal FLA LOS Right Digit al Radiography Impressions 09/02/2023 3:06 PM CITRIX ARCHITECT Comparison with radiographs 05/06/2023. Severe and progressive osteoarthritis of the right hip joint is present. No evidence of fracture. Intact ilioischial and iliopectineal lines. Mild left hip joint arthrosis and partial visualization lower lumbar spondylosis. Narrative 09/02/2023 3:06 PM CITRIX ARCHITECT EXAM: DX HIP AND PELVIS RIGHT 2-3 VIEWS Procedure Note Abraham Madden M.D. - 09/02/2023 EXAM: DX HIP AND PELVIS RIGHT 2-3 VIEWS IMPRESSION: Comparison with radiographs 05/06/2023. Severe and progressiveosteoarthritis of the right hip joint is present. No evidence of fracture.Intact ilioischial and iliopectineal lines. Mild left hip joint arthrosisand partial visualization lower lumbar spondylosis. Winston [place] M.D. IMG PATY GNOSTIC IMAGING PROCEDURES documented in this encounter Visit Diagnoses Diagnosis Pain Hip Right documented in this encounter Additional Health Concerns Assessment Noted Time PHQ-9 Depression Total Score: 0 06/23/20 19 2:38 PM CITRIX ARCHITECT documented as of this encounter Care Teams Learning Technologist Relationship Specialty Start Date End Date Winston Fan M.B.B.S., M.D. [address] [place] [phone] PCP - General Family Medicine 06/20/23 documented as of this encounter
--- OUTSIDE RECORDS SUMMARY | 2023-12-09 09:09 | XMS_ITS | Encounter Summary ---
Author Name Unknown Organization [facility] Address [address] [place] [address] Care Team Providers Care Wood Planer Name Role Phone Winston Fan M.D. [facility] Reason for Referral * Outpatient (Routine) - Closed Specialty Diagnoses / Procedures Referred By Contac t Referred To Contact Diagnoses Pain Hip Right Procedures FL Major Joint Aspiration And Or Injection Right Mera Torres P.A.-C., P.A. [address], [place] [phone] [facility] Region Referral ID Status Reason Start Date Expiration Date Visits Re quested Visits Authorized [id number] Closed 09/02/2023 09/01/2024 1 1 OLL ACCOUNTANT Reason for Visit * Reason Comments Pain * Outpatient (Routine) - Closed Specialty Diagnoses / Procedures Referred By Contac t Referred To Contact Orthopedic Surgery Diagnoses Pain Hip Right Winston Fan M.B.B.S., M.D. [address] [place] [phone] [facility] Region Referral ID Status Reason Start Date Expiration Date Visits Re quested Visits Authorized [id number] Closed 08/19/2023 02/17/2025 1 1 Encounter Details Date Type Department Care Team (Latest Contact Info) Description 09/02/2023 2:15 PM PAYROLL ACCOUNTANT Comprehensive Visit Department of Orthopedic Surgery in [place], [place] [address] [phone] Mera Torres P.A.-C., P.A. [address], [place] [phone] Pain Hip Right (Primary Dx) Social History Tobacco Use Types [...] often do you attend chur ch or buddhism services? More than 4 times per year 10/28/2022 Do you belong to any clubs o r organizations such as episcopalian groups, unions, fraternal or athletic groups, or [...] Answer Date Recorded PHQ-2 Score 0 03/27/2023 [facility] - Occupational Stress Questionnaire Answer Date Recorded [...] place to sleep or slept in a assisted (including now)? No 10/28/2022 Nutrition Answer Date [...] PM CDT documented as of this encounter Consult Notes * Mera Torres P.A.-C., P.A. - 09/02/2023 2:15 PM CST CHIEF COMPLAINT Right hip pain HISTORY OF PRESENT ILLNESS Mr. Olmstead is a pleasant 78 y.o. year old male here today for right hip pain. This started in April. He does not recall an injury. He has been working with physical therapy which has been beneficial for him. He is sleeping with a pillow between his legs. 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 PHYSICAL EXAM GENERAL: This is a well-nourished, well-developed 78 y.o. male. He is alert and oriented x3. No acute distress. He is cooperative and responds appropriately to all questions. MUSCULOSKELETAL: No significant tenderness to palpation of the lateral hip. Mild tenderness to palpation of the anterior groin. Internal and external rotation of the hip cause mild anterior groin pain and buttock pain. Internal rotation is significantly limited. NEURO: Sensation is intact to light touch throughout right lower extremity. Cap refill is less than2 seconds. IMAGING Right hip x-rays performed today reviewed and show no fracture or dislocation. Severe right hip degenerative joint disease. ASSESSMENT/PLAN #1 Pain Hip Right We have discussed that he does have severe degenerative changes of his right hip. This is causing him difficulty with walking. We have discussed options today including a an intra-articular hip jointinjection and total hip arthroplasty. As he is the primary caregiver for his who is in a wheelchair he does not feel that he is ready for a total hip arthroplasty at this time. We will proceed with an intra-articular hip joint injection with fluoroscopic guidance. He can have these injections performed every 3-4 months as needed for pain. OLL ACCOUNTANT documented in this encounter Plan of Treatment Upcoming Encounters Date Type Department Care Team (Late st Contact Info) Description 12/31/2023 10:10 AM CDT Appointment Department of Laboratory Medicine in [address] [phone] Winston Fan M.B.B.S., M.D. [address] [place] [phone] 01/06/2024 2:30 PM CDT Office Visit Department of Ophthalmology in [place], [place] [address] [place] [phone] Rey Pabon Jr., M.D. [address] [place] [phone] documented as of this encounter Results * FL Major Joint Aspiration And Or Injection Right (09/03/2023 11:33 AM PAYROLL ACCOUNTANT) Anatomical Region Laterality Modality Joint, Musculoskeletal RST L OS, Musculoskeletal ARZ LOS, Procedure FLA LOS, Muskuloskeletal FLA LOS Right Digita l Radiography Impressions 09/03/2023 12:27 PM PAYROLL ACCOUNTANT Successful fluoroscopic-guided therapeutic injection of the right hip joint. Narrative 09/03/2023 12:27 PM PAYROLL ACCOUNTANT EXAM: FL MAJOR JOINT ASPIRATION AND OR INJECTION RIGHT PROCEDURE: Sterile; 1% lidocaine for local anesthesia. Location: RIGHT Needle size: 22G Instilled in Joint: Intra-articular positioning was verified with injection of a small volume iodinated contrast. Following this, a mixture of sterile 4mL 0.5% Ropivacaine and 1 mL (6mg) of Betamethasone was instilled into the joint space. Other: Preprocedure pain 3/10. Postprocedure pain 0/10. Complications: None PREPROCEDURE: Patient seen, evaluated, and history reviewed. Discussed risks, benefits, alternatives for procedure, and obtained informed consent. ??Patient understands information and questions answered. Immediately prior to starting the procedure, in the presence of the assisting personnel, procedural pause was conducted to verify correct patient identity and verification of procedure to be performed, and as applicable, correct side and site, correct patient position, availability of implants, special equipment, or special requirements, and all image and specimen identification data. The roles and responsibilities of care team members, residents, and fellows were discussed. The medication list was reviewed and there are no changes to current medications. Patient Education provided by a care team manager. Ready to learn, no apparent learning barriers were identified. Post-procedure care explained; patient expressed understanding of the content. Procedure Note Abraham Lau M.D. - 09/03/2023 EXAM: FL MAJOR JOINT ASPIRATION AND OR INJECTION RIGHT PROCEDURE: Sterile; 1% lidocaine for local anesthesia. Location: RIGHT Needle size: 22G Instilled in Joint: Intra-articular positioning was verified withinjection of a small volume iodinated contrast. Following this, a mixture of sterile 4mL 0.5% Ropivacaine and 1 mL (6mg)of Betamethasone was instilled into the joint space. Other: Preprocedure pain 3/10. Postprocedure pain 0/10. Complications: None PREPROCEDURE: Patient seen, evaluated, and history reviewed. Discussedrisks, benefits, alternatives for procedure, and obtained informedconsent. Patient understands information and questions answered.Immediately prior to starting the procedure, in the presence of the assisting personnel, procedural pause was conducted toverify correct patient identity and verification of procedure to beperformed, and as applicable, correct side and site, correct patientposition, availability of implants, special equipment, or special requirements, and all image and specimenidentification data. The roles and responsibilities of care team members,residents, and fellows were discussed. The medication list was reviewedand there are no changes to current medications. Patient Education provided by a care team manager. Stephanie liz, no apparent learning barriers were identified. Post-procedure careexplained; patient expressed understanding of the content. IMPRESSION: Successful fluoroscopic-guided therapeutic injection of the right hipjoint. Mera Torres P.A.-C. PMelindaAMelinda IMG FLU OROSCOPY PROCEDURES documented in this encounter Visit Diagnoses Diagnosis Pain Hip Right- Primary Pain Hip Right documented in this encounter Additional Health Concerns Assessment Noted Time PHQ-9 Depression Total Score: 0 06/23/20 19 2:38 PM PAYROLL ACCOUNTANT documented as of this encounter Care Teams Wood Planer Relationship Specialty Start Date End Date Winston Fan M.B.B.S., M.D. [address] [place] [phone] PCP - General Family Medicine 06/20/23 documented as of this encounter
--- OUTSIDE RECORDS SUMMARY | 2023-12-09 09:09 | XMS_ITS | Encounter Summary ---
Author Name Unknown Organization [facility] Address [address] [place] [address] Care Team Providers Care Butcher Fish Name Role Phone Winston Fan M.D. Primary Care P shellie Encounter Details Date Type Department Care Team (Late st Contact Info) Description 05/01/2015 Historical Ophthalmology [facility] Rey Pabon Jr., M.D. [address] [place] [phone] Social History Tobacco Use Types Packs/Day Years Used Date Smoking Tobacco: Never Assessed Sex and Gender Information Value Date Recorded Sex Assigned at Male 05/18/2018 7:14 PM CDT Gender Identity Male 05/18/2018 7:14 PM CDT Sexual Orientation Straight 05/18/2018 7: 14 PM CDT documented as of this encounter Progress Notes * Rey Pabon M.D. - 05/01/2015 12:44 PM CDT Eye General CHIEF COMPLAINT Pt here for complete diabetic eye exam HISTORY OF PRESENT ILLNESS Pt states his BS is stable Last A1C 6.8 in october 2014 No [facility] IMPRESSION / REPORT / PLAN A) Nuclear and cortical cataracts, stable. 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 CDM Reports - EYEGEN Id: [id number] Status: Fnl documented in this encounter Plan of Treatment Upcoming Encounters Date Type Department Care Team (Late st Contact Info) Description 12/31/2023 10:10 AM CDT Appointment Department of Laboratory Medicine in [place], [place] [address] [place] [phone] Winston Fan M.B.BEdna, Erasto [address] [place] [phone] 01/06/2024 2:30 PM CDT Office Visit Department of Ophthalmology in [place], [place] [address] [place] [phone] Rey Pabon Jr., M.D. [address] [place] [phone] documented as of this encounter Visit Diagnoses Not on filedocumented in this encounter Additional Health Concerns Infection Onset Date Last Indicated Resolved Time COVID19 Pending Comment:Canceled Order Cancelled by Lab [facility] 01/17/2020 01/03/2020 01/03/2020 01/17/2020 2:43 PM C DT COVID19 Pending 06/16/2020 06/16/2020 06/17/2020 7 :23 PM SENIOR ENGINEERING ASSOCIATE documented as of this encounter Care Teams Butcher Fish Relationship Specialty Start Date End Date Winston Fan M.B.B.S., MMeg. [address] [place] [phone] PCP - General Family Medicine 06/20/23 documented as of this encounter
--- OUTSIDE RECORDS SUMMARY | 2023-12-09 09:09 | XMS_ITS | Encounter Summary ---
Author Name Unknown Organization [facility] Address [address] [place] [address] Care Team Providers Care Bar Tacker Name Role Phone Winston Fan M.D. Primary Care P shellie Encounter Details Date Type Department Care Team (Late st Contact Info) Description 12/26/2016 Historical Ophthalmology [facility] Rey Pabon Jr., M.D. [address] [place] [phone] Social History Tobacco Use Types Packs/Day Years Used Date Smoking Tobacco: Former Sex and Gender Information Value Date Recorded Sex Assigned at Male 05/18/2018 7:14 PM CDT Gender Identity Male 05/18/2018 7:14 PM CDT Sexual Orientation Straight 05/18/2018 7: 14 PM CDT documented as of this encounter Progress Notes * Rey Pabon M.D. - 12/26/2016 8:59 AM CDT Eye General CHIEF COMPLAINT Complete Exam HISTORY OF PRESENT ILLNESS No vision concerns noted. IMPRESSION / REPORT / PLAN #1 Diabetes, type 2 Good numbers, although LDL a little high. No retinopathy or macular edema. #2 Nuclear and cortical cataracts, stable. RTO 1 year New glasses if desired. DIAGNOSIS #1 Diabetes, type 2 #2 Nuclear and cortical cataracts, stable. CDM Reports - EYEGEN Id: [id number] Status: Fnl documented in this encounter Plan of Treatment Upcoming Encounters Date Type Department Care Team (Late st Contact Info) Description 12/31/2023 10:10 AM CDT Appointment Department of Laboratory Medicine in [place], [place] [address] [place] [phone] Winston Fan M.B.B.S., Erasto [address] [place] [phone] 01/06/2024 2:30 PM CDT Office Visit Department of Ophthalmology in [place], [place] [address] [place] [phone] Rey Pabon Jr., M.D. [address] [phone] documented as of this encounter Visit Diagnoses Not on filedocumented in this encounter Additional Health Concerns Infection Onset Date Last Indicated Resolved Time COVID19 Pending Comment:Canceled Order Cancelled by Lab [facility] 01/17/2020 01/03/2020 01/03/2020 01/17/2020 2:43 PM C DT COVID19 Pending 06/16/2020 06/16/2020 06/17/2020 7 :23 PM CHARGE MANAGER Assessment Noted Time PHQ-9 Depression Total Score: 0 07/02/20 16 8:33 AM CHARGE MANAGER documented as of this encounter Care Teams Bar Tacker Relationship Specialty Start Date End Date Winston Fan M.B.B.SMelinda, Erast[address] [place] [phone] PCP - General Family Medicine 06/20/23 documented as of this encounter
--- OUTSIDE RECORDS SUMMARY | 2023-12-09 09:09 | XMS_ITS | Clinical Summary ---
Author Name Unknown Organization [facility] [employer] [employer] [facility] Address [place], [place] [address] Care Team Providers Care Industrial Rehabilitation Consultant Name Role Phone Abraham Avila MD Primary Care Provider Allergies No known active allergies Medications Medication Sig Dispensed Refills Start Date End Date Status pioglitazone (ACTOS) 45 mg tablet Take 45 mg by mouth once daily. Active atorvastatin (LIPITOR) 80 mg tablet Take 80 mg by mouth once daily. Active metFORMIN (GLUCOPHAGE) 1,000 mg tablet Take 1,000 mg by mouth 2 times daily with meals. Active Active Problems Problem Noted Date Diagnosed Date Diabetes mellitus 03/18/2011 Encounters Date Type Department Care Team Description 10/16/2023 Telephone [facility] [address] [place] [address] Nick Waters MD Questions from Last 3 Months Immunizations Name Administration Dates Next Due Influenza, Inactivated AIIV4 (Age 65+ Years) Preserv Free 05/05/2023,04/30/2021 Social History Tobacco Use Types Packs/Day Years Used Date Smoking Tobacco: Former Alcohol Use Standard Drinks/Week Comments No 0 (1 standard drink = 0.6 oz pur e alcohol) Sex and Gender Information Value Date Recorded Sex Assigned at Not on file Gender Identity Not on file Sexual Orientation Not on file Obstetrics History Last Filed Vital Signs Vital Sign Reading Time Taken Comments Blood Pressure 106/67 12/05/2016 10:45 AM CDT Pulse 52 12/05/2016 10:45 AM CDT Temperature 36 ??C (96.8 ??F) 12/05/2016 10: 15 AM CDT Respiratory Rate 16 12/05/2016 11:0 0 AM CDT Oxygen Saturation 99% 12/05/2016 10: 45 AM CDT Inhaled Oxygen Concentration - - Weight 86.5 kg (190 lb 12.9 oz) 07/22/2016 1:07 PM DESIGN ENGINEER Height 169 cm (5' 6.54) 07/22/2016 1:07 PM DESIGN ENGINEER Body Mass Index 30.3 07/22/2016 1:07 PM DESIGN ENGINEER Plan of Treatment Health Maintenance Due Date Last Done Comments Tdap 1958 Depression screening for age 12+ 1959 BMI (ht and wt on same day) for age 18+ 1965 Hepatitis C screening for ag e 18-79 1965 Tetanus booster 1967 Zoster (shingles) series for age 50+ (1 of 2) 1997 Medicare Wellness for age 65+ 2012 Pneumococcal series for age 65+ (1 of 1 - PCV) 2012 COVID-19 vaccine series (2022-24 season) 2023 04/26/2022, 02/04/2022, 05/01/2021, Additional history exists Influenza for age 65+ 03/28/2024 05/05/2023, 021 Advance Directives * Full Code (Latest Code Status on File) Date Activated Date Inactivated Comments 12/05/2016 8:21 AM 12/05/2016 1:13 PM Care Teams Industrial Rehabilitation Consultant Relationship Specialty Start Date End Date Abraham Avila MD PCP - General Internal Medicine 03/01/11
--- OUTSIDE RECORDS SUMMARY | 2023-12-09 09:09 | XMS_ITS | Encounter Summary ---
Author Name Unknown Organization [facility] Address [address] [place] [address] Care Team Providers Care Barrel Repairer Name Role Phone Winston Fan M.D. Primary Care shellie Reason for Referral * Outpatient (Routine) - Closed Specialty Diagnoses / Procedures Referred By Contac t Referred To Contact Diagnoses Pain Hip Right Procedures FL Major Joint Aspiration And Or Injection Right Mera Torres P.A.-C., P.A. [address] [phone] [facility] Region Referral ID Status Reason Start Date Expiration Date Visits Re quested Visits Authorized [id number] Closed 09/02/2023 09/01/2024 1 1 OR GL ACCOUNTANT Reason for Visit * Outpatient (Routine) - Closed Specialty Diagnoses / Procedures Referred By Contac t Referred To Contact Diagnoses Pain Hip Right Procedures FL Major Joint Aspiration And Or Injection Right Mera Torres P.A.-C., P.A. [address] [phone] [facility] Region Referral ID Status Reason Start Date Expiration Date Visits Re quested Visits Authorized [id number] Closed 09/02/2023 09/01/2024 1 1 Encounter Details Date Type Department Care Team (Latest Contact Info) Description 09/03/2023 10:39 AM SENIOR GL ACCOUNTANT - 09/03/2023 11:59 PM SENIOR GL ACCOUNTANT Hospital Encounter Department of Radiology in [place], [place] [address] [phone] Mera Torres P.A.-C., P.A. [address], [place] [address] Pain Hip Right Discharge Disposition: Home or [...] often do you attend chur ch or mormon services? More than 4 times per year 10/28/2022 Do you belong to any clubs o r organizations such as lutheran groups, unions, fraternal or athletic groups, or [...] Answer Date Recorded PHQ-2 Score 0 03/27/2023 [facility] [place] [facility] - [...] place to sleep or slept in a [place] health [place] facility (including now)? No 10/28/2022 Nutrition Answer Date [...] Sign Reading Time Taken Comments Blood Pressure 125/66 09/03/2023 11:23 AM SENIOR GL ACCOUNTANT Pulse 62 09/03/2023 11:23 AM SENIOR GL ACCOUNTANT Temperature 36.5 ??C (97.7 ??F) 09/03/2023 11:[address] Respiratory Rate - - Oxygen Saturation 98% 09/03/2023 11:23 AM SENIOR GL ACCOUNTANT Inhaled Oxygen Concentration - - Weight - - Height - - Body Mass Index - - documented in this encounter Medications at Time of Discharge Medication Sig Dispensed Refills Start Date End Date aspirin [address] tablet Take 81 mg by mouth daily. blood sugar diagnostic strips (BitWaveTouch Ultra Test Strips)Indications:Paty betes Mellitus Type 2 [...] 08/24/2023 09/29/2023 documented as of this encounter Nursing Notes * Kelly Gomez R.N. - 09/03/2023 11:00 AM CST Patient denies active infections. Patient takes a daily aspirin and is diabetic. He is aware that this injection may elevate his blood sugars for the next few days. His blood sugar today was 106. Patient tolerated procedure without complication and site(s) were well coagulated with adhesive band aids applied. Patient was able to ambulate independently per baseline and was discharged ambulatory. OR GL ACCOUNTANT documented in this encounter Plan of Treatment Upcoming Encounters Date Type Department Care Team (Late st Contact Info) Description 12/31/2023 10:10 AM CDT Appointment Department of Laboratory Medicine in [address] [phone] Winston Fan M.B.BMelindaSMelinda, M.D. [address] [place] [phone] 01/06/2024 2:30 PM CDT Office Visit Department of Ophthalmology in [place], [place] [address] [place] [phone] Rey Pabon Jr., M.D. [address] [place] [phone] documented as of this encounter Procedures Procedure Name Priority Date/Time Associated Diagnosis Comments FL MAJOR JOINT ASPIRATION AND OR INJECTION RIGHT RAD - Routine (most inpatients and all outpatients) 09/03/2023 11:33 AM SENIOR GL ACCOUNTANT Pain Hip Right documented in this encounter Results * FL Major Joint Aspiration And Or Injection Right (09/03/2023 11:33 AM SENIOR GL ACCOUNTANT) Anatomical Region Laterality Modality Joint, Musculoskeletal RST L OS, Musculoskeletal ARZ LOS, Procedure FLA LOS, Muskuloskeletal FLA LOS Right Digita l Radiography Impressions 09/03/2023 12:27 PM SENIOR GL ACCOUNTANT Successful fluoroscopic-guided therapeutic injection of the right hip joint. Narrative 09/03/2023 12:27 PM SENIOR GL ACCOUNTANT EXAM: FL MAJOR JOINT ASPIRATION AND [...] medications. Patient Education provided by a care steam distribution supervisor. Ready to learn, no apparent learning barriers [...] medications. Patient Education provided by a care steam distribution supervisor. Stephanie lzi, no apparent learning barriers were identified. Post-procedure careexplained; patient expressed understanding of the content. IMPRESSION: Successful fluoroscopic-guided therapeutic injection of the right hipjoint. Mera Torres P.A.-C., P.A. IMG FLU OROSCOPY PROCEDURES documented in this encounter Visit Diagnoses Diagnosis Pain Hip Right documented in this encounter Administered Medications Inactive Administered Medications - up to 3 most recent administrations Medication Order MAR Action Action Date Dose Rate Site betamethasone acetate & sodium phosphate injection 6 mg (CELESTONE SOLUSPAN) 6 mg, intra-articular, Once, On Fri09/03/23 at 1200, For 1 dose, Protect from light. Given 09/03/2023 11:18 AM SENIOR GL ACCOUNTANT 6 mg iohexoL 300 mg iodine/mL solution 1 mL (OMNIPAQUE) 1 mL, intra-articular, Once in imaging, contrast, Starting on Fri09/03/23 at 1130, For 1 dose Given 09/03/2023 11:18 AM SENIOR GL ACCOUNTANT 1 mL lidocaine 10 mg/mL (1 %) injection 2.25 mL (XYLOCAINE) 2.25 mL, injection, Once, On Fri09/03/23 at 1200, For 1 dose Given 09/03/2023 11:18 AM SENIOR GL ACCOUNTANT 2.25 mL ROPivacaine (PF) 5 mg/mL (0.5 %) injection 20 mg (NAROPIN) 20 mg (4 mL), intra-articular, Once, On Fri09/03/23 at 1200, For 1 dose Given 09/03/2023 11:18 AM SENIOR GL ACCOUNTANT 20 mg sodium bicarbonate injection 0.25 mEq 0.25 mEq, injection, Once, On Fri09/03/23 at 1200, For 1 dose, Given with lidocaine via injection Given 09/03/2023 11:18 AM SENIOR GL ACCOUNTANT 0.25 mEq documented in this encounter Additional Health Concerns Assessment Noted Time PHQ-9 Depression Total Score: 0 06/23/20 19 2:38 PM SENIOR GL ACCOUNTANT documented as of this encounter Care Teams Barrel Repairer Relationship Specialty Start Date End Date Winston Fan M.B.B.S., MMeg. [address] [place] [phone] PCP - General Family Medicine 06/20/23 documented as of this encounter
--- OUTSIDE RECORDS SUMMARY | 2023-12-09 09:09 | XMS_ITS | Encounter Summary ---
Author Name Unknown Organization [facility] Address [address] [place] [address] Care Team Providers Care Assembly Supervisor Name Role Phone Winston Fan M.D. [facility] Encounter Details Date Type Department Care Team (Late st Contact Info) Description 03/24/2014 Historical Ophthalmology [facility] Rey Pabon Jr., M.D. [address] [place] [phone] Social History Tobacco Use Types Packs/Day Years Used Date Smoking Tobacco: Never Assessed Sex and Gender Information Value Date Recorded Sex Assigned at Male 05/18/2018 7:14 PM CDT Gender Identity Male 05/18/2018 7:14 PM CDT Sexual Orientation Straight 05/18/2018 7: 14 PM CDT documented as of this encounter Progress Notes * Rey Pabon M.D. - 03/24/2014 8:02 AM CDT Eye General CHIEF COMPLAINT Pt here for complete diabetic eye exam BS stable Last A1C6.8 10/08 No [facility] IMPRESSION / REPORT / PLAN A) DM, no PMO ANALYST or PDR P) RTO 1 year, MR if desired (glasses pretty scratched) CDM Reports - EYEGEN Id: [id number] Status: Fnl documented in this encounter Plan of Treatment Upcoming Encounters Date Type Department Care Team (Late st Contact Info) Description 12/31/2023 10:10 AM CDT Appointment Department of Laboratory Medicine in [place], [place] [address] [place] [phone] Winston Fan M.B.B.SMelinda, Erast[place] [address] [place] [phone] 01/06/2024 2:30 PM CDT Office Visit Department of Ophthalmology in [place], [place] [address] [place] [phone] Rey Pabon Jr., M.D. [address] [place] [phone] documented as of this encounter Visit Diagnoses Not on filedocumented in this encounter Additional Health Concerns Infection Onset Date Last Indicated Resolved Time COVID19 Pending Comment:Canceled Order Cancelled by Lab [facility] 01/17/2020 01/03/2020 01/03/2020 01/17/2020 2:43 PM C DT COVID19 Pending 06/16/2020 06/16/2020 06/17/2020 7 :23 PM WEB SITE ADMINISTRATOR documented as of this encounter Care Teams Assembly Supervisor Relationship Specialty Start Date End Date Winston Fan M.B.B.SMelinda, [address] [place] [phone] PCP - General Family Medicine 06/20/23 documented as of this encounter
[2023-12-09] MEDS: ACETAMINOPHEN 500 MG TABLET 1000 MG PO ×2 (09:30→23:19)
[2023-12-09] MEDS: OXYCODONE (CR) 10 MG TAB.ER.12H PO (09:30)
[2023-12-09] MEDS: CELECOXIB 200 MG CAPSULE PO (09:30)
[2023-12-09] MEDS: LACTATED RINGERS 1000 ML 1,000 ML 100 ML IV (09:35)
[2023-12-09] MEDS: SODIUM CHLORIDE 0.9 % (FLUSH) 10 ML SYRINGE IVF (09:35)
--- NOTE | 2023-12-09 11:15 | XR_ITS ---
Patient: BOGDAN FOLEY Facility:?[facility] Patient ID:?[id number] Site Patient ID:?[id number]. Site :?[id number] Study:?XRay-Hip Right 1V-12/09/2023 2:38:25 PM Ordering Physician:CHARITO Final Report: Indication: Hip replacement surgery Technique: AP hip fluoroscopic images. Fluoroscopy time 55.8 seconds. Findings/Impression: Hardware from a right total hip arthroplasty is in satisfactory position. Dictated by Abraham Negro MD @ 12/10/2023 12:27:36 PM Signed by:?Abraham Negro MD @12/10/2023 12:27:36 PM (Electronic Signature)
[2023-12-09] MEDS: fentaNYL 100 MCG/2 ML inj IVP (11:25)
[2023-12-09] MEDS: MIDAZOLAM HCL 1 MG/ML inj IVP (11:25)
--- NOTE | 2023-12-09 11:38 | SUR.PREOP ---
TIME?OUT:?1125 PT/Delano ELLSWORTH RN/Juana VALENCIA MDA?VERIFICATION?OF?SURGICAL?SITE,?PROCEDURE,?AND?CONSENT OBTAINED?PRIOR?TO?INVASIVE?PROCEDURE.
--- NOTE | 2023-12-09 12:57 | W.PM.NB ---
Nerve Block Nerve Block Time Seen by Provider: 11:30 Date Seen: 12/09/23 Type of block requested by surgeon for post-operative analgesia: STEPHANIE/LFCN Side: right Time out performed: Yes Verification of patient name: Yes Verification of date of : Yes Site marking: site marked Name of person performing procedure: Faustino Continuous monitoring Was continuous monitoring of O2 sat, B/P, lunchroom monitor, recorded every 15 minutes?: Yes Procedure Checklist: sterile prep, needles and gloves Ultrasound guided. Images saved: Yes Medications given in 5ml increments after negative aspiration: Ropivicaine %: 0.5 mL: 30 Needle gauge: 20 Decadron (mg): 10 Precedex (mcg): 25 Patient tolerated procedure well: Yes Additional comments: Needle noted below psoas tendon needle noted adjacent to LFCN Block Charges Block Charge (with Pro Fee): Other Periph Nerve Block Use of Ultrasound Machine for Block: Yes- US Guidance/pain block
--- NOTE | 2023-12-09 12:58 | W.ANESCHARGE ---
Anesthesia Charges Start Date/Time Anesthesia Start Date: 12/09/23 Anesthesia Start Time: 12:10 Stop Date/Time Anesthesia Stop Date: 12/09/23 Anesthesia Stop Time: 14:26 Summary Extremes of Age - Over 70 or under 1: MDA
--- NOTE | 2023-12-09 13:47 | XR_ITS ---
Patient: BOGDAN FOLEY Facility:?[facility] Patient ID:?[id number] Site Patient ID:?[id number]. Site :?[id number] Study:?XRay-Hip Right POST OP-12/09/2023 2:42:14 PM Ordering Physician:CHARITO Final Report: Indication: Postop Technique: AP hip centered pelvis and lateral view right hip Findings/Impression: Hardware from a right total hip arthroplasty is in satisfactory position. Bone alignment is normal. No sign of acute fracture. Postop changes are within normal limits. Dictated by Abraham Negro MD @ 12/10/2023 12:30:38 PM Signed by:?Abraham Negro MD @12/10/2023 12:30:38 PM (Electronic Signature)
--- NOTE | 2023-12-09 13:48 | PM.ORPRC ---
Procedure Note Date of procedure: 12/09/23 Procedure: PREOPERATIVE DIAGNOSIS: Right hip osteoarthritis POSTOPERATIVE DIAGNOSIS: Right hip osteoarthritis NAME OF OPERATION: Right total hip arthroplasty SURGEON: Neo Vasques MD TOW MOTOR MECHANIC: Tarah Pabon PA-C, ALMAS Brian IMPLANTS: 1. J[employer]J Wisner # 52 sector ingrowth cup 2. 36 x 52 +4 neutral polyethylene 3. Actis # 7 standard collared ingrowth stem 4. 36 + 1.5 cobalt chrome femoral head ANESTHESIA: General ESTIMATED BLOOD LOSS: 300 cc COMPLICATIONS: None SPECIMENS: None DRAINS: None PREOPERATIVE ANTIBIOTICS: Ancef 2 grams INDICATIONS: The patient is a 78-year-old with a longstanding history of severe, unrelenting right hip pain secondary to end-stage right hip osteoarthritis. Despite appropriate nonoperative management, including activity modification, use of an assist device, anti-inflammatories, [id number] pain medication, physical therapy and injections, they continue to have pain and disability. Operative intervention was offered. The risks, benefits and expected outcomes were discussed in detail. These included but were not limited to: Infection, bleeding, injury to blood vessel or nerve, venous thromboembolism. All questions were answered to their satisfaction. Use of an assistant center director was necessary throughout the case for patient positioning and safety, soft tissue retraction and closure. PROCEDURE: The patient was placed supine on the Castor table. General anesthesia was administered. The assistant center director made sure the patient was properly positioned. The right hip was prepped and draped in the usual sterile fashion. The image intensifier was brought in for a perfect AP pelvis and a perfect double tear drop AP view of each hip which were used for intraoperative templating with our fluoroscopic guide. An oblique incision was made 3 cm distal and 3 cm lateral to the anterior superior iliac spine. The assistant center director retracted the soft tissues to protect them. Subcutaneous dissection was taken with electrocautery to the superficial fascia. The fascia was divided in line with the incision. Blunt dissection was carried medially to the tensor fascia rad and sartorius interval. Deep dissection was carried with electrocautery. The circumflex vessels were cauterized and divided. The capsule was exposed and then divided in a T-fashion, tagged with #1 Ethibond sutures. Retractors were placed in the joint, held by the assistant center director. The corkscrew was placed in the femoral head. The neck cut was made in the subcapital region. We made a second neck cut more distal. The napkin ring of bone was removed. The femoral head was removed intact. Acetabular retractors were placed, held by the assistant center director. The labrum was sharply debrided. The capsule was released. The 43 mm reamer was used to the true medial wall. We then enlarged in 2 mm increments using the image intensifier for our reamer placement. We impacted the cup which had excellent purchase. We placed the polyethylene. Attention was then turned to the proximal femur. The limb was placed in 140 degrees of external rotation, maximum extension and adduction. A significant amount of time was spent releasing the capsule to allow us to deliver the femur into the wound and complete the femoral side safely. Retractors were held by the assistant center director throughout the femoral preparation. The box toe cutter and canal finder were used. Broaches were used to a stable size. The calcar reamer was used. Trial components were placed. The hip was reduced and was found to be stable with appropriate soft tissue tension. Length and offset had been nicely restored using the image intensifier and our fluoroscopic guide. Trial components were removed. The stem was impacted. We placed the femoral head. Again, the hip was reduced and was found to be stable with appropriate soft tissue tension. Length and offset had been nicely restored. The assistant center director did a three minute dilute Betadine solution soak. The assistant center director irrigated the wound with 3 liters of normal saline via pulse lavage. The assistant center director repaired the anterior capsule with a #1 Vicryl and our previously placed Ethibond sutures. The assistant center director closed the fascia over the tensor fascia rad with a #1 PDO Stratafix, subcutaneous tissues with 2-0 Vicryl, skin with a running 3-0 Stratafix and glue. A dry dressing was applied by the assistant center director. Sponge and needle counts were correct x 2. The patient tolerated the procedure well; there were no apparent complications. They were awakened and extubated in the operating room, sent to the Post-Anesthesia Care Unit in satisfactory condition. PLAN: 1. The patient will be mobilized with physical therapy, weight-bearing as tolerates 2. Xarelto x 5 days then aspirin x 30 days will be used for DVT prophylaxis 3. The patient will be discharged once medically appropriate
--- NOTE | 2023-12-09 14:27 | W.ANESCHARGE ---
Anesthesia Charges Start Date/Time Anesthesia Start Date: 12/09/23 Anesthesia Start Time: 12:10 Stop Date/Time Anesthesia Stop Date: 12/09/23 Anesthesia Stop Time: 14:26
[2023-12-09] MEDS: LACTATED RINGERS 1000 ML 1,000 ML 35 ML IV (14:35)
[2023-12-09] MEDS: fentaNYL 100 MCG/2 ML inj 50 MCG IVP ×2 (14:37→14:48)
[2023-12-09] MEDS: HYDROmorphone 0.5 mg/0.5 ml inj IVP (16:17)
[2023-12-09] MEDS: ONDANSETRON 2 MG/ML inj 4 MG IVP (19:17)
[2023-12-09] MEDS: INSULIN ASPART 100 UNIT/ML SUBCUT ×2 (19:30→21:12)
[2023-12-09] MEDS: CEFAZOLIN 2 GM in 0.9 % SODIUM CHLORIDE Mini-bag 100 ML IVPB (20:01)
--- NOTE | 2023-12-09 20:06 | PC.NURSE ---
End of shift [id number] - Pt alert, oriented, cooperative. Tolerating RA, regular diet, fluids. Pt reported intermittent nausea, medication given per MAR with pt reporting improvement. Continent of bladder, able to void during shift. Pt reports pain as 7/10 which is reported as being tolerable but pt reports wanting pain level to be lower than 7/10 level. Medication given per MAR with pt behavior indicating comfort. Dressing CDI, ice pack in place. Family at bedside. Pt appears to be resting comfortably in bed at end of shift.
--- NOTE | 2023-12-09 20:18 | P.IMHP_ITS ---
Hospitalist- H&P: HPI History of Present Illness Date Seen: 12/09/23 Chief complaint: Right total hip Narrative: Raymond Olmstead is a 78 year old male with diabetes mellitus and stage 3 chronic kidney disease admitted to the hospital for right total hip arthroplasty. Procedures performed by Dr. Vasques. No apparent operative complications. Blood loss of [address] Vasques has requested consultation for management of medical problems following surgery. Patient reports generally doing well after surgery. He is requiring some additional pain medication. He has some nausea and has not yet started to eat or drink. He was a bit chilled coming out of the surgery but he is now warming up. He reports feeling fine this morning when he came to the hospital. He had a preop physical with his primary care doctor and there were no significant perioperative concerns. Review of Systems Narrative: No recent illness or injury. Review of systems is otherwise unremarkable. No previous history of bleeding, thrombophilia or problems with anesthesia [facility] Medical History (Updated 12/09/23 @ 20:25 by Darien Villarreal MD) HTN (hypertension) ?I10 - Essential (primary) hypertension (ICD-10) Hand paresthesia ?R20.2 - Paresthesia of skin (ICD-10) BPH without urinary obstruction ?N40.0 - Benign prostatic hyperplasia without lower urinary tract symptoms (ICD-10) Hyperlipidemia ?E78.5 - Hyperlipidemia, unspecified (ICD-10) CKD stage 3a, GFR 45-59 ml/min ?N18.31 - Chronic kidney disease, stage 3a (ICD-10) Type 2 diabetes mellitus ?E11.9 - Type 2 diabetes mellitus without complications (ICD-10) Surgical History (Updated 12/09/23 @ 20:24 by Darien Villarreal MD) S/P total right hip arthroplasty ?Z96.641 - Presence of right artificial hip joint (ICD-10) H/O hernia repair ?Z98.890 - Other specified postprocedural states (ICD-10) ?Z87.19 - Personal history of other diseases of the digestive system (ICD-10) Social History (Updated 12/09/23 @ 20:22 by Darien Villarreal MD) Narrative: He lives in [place] with his . He lives in a home with no stairs. His is in a wheelchair and his home is quite handicap assessable. He does not smoke. He does not drink alcohol. is healthcare power of document review attorney. Code status is full. Smoking Status: Former smoker What tobacco products do you use: cigarettes Smoking quit date/years: >15 years ago Do you use any of these nicotine containing products: None Second hand tobacco smoke exposure: No How often do you have a drink containing alcohol: never AUDIT-C Alcohol total score: 0 Non-prescribed substance use: denies use Caffeine: Yes Are you now , , , , never or living with a partner: Social isolation score (0-1 are the most socially isolated patients): 1 Meds Home Medications and Allergies Home Medications Medication Instructions Recorded Confirmed Type coenzyme Q10 300 mg capsule (Co 300 mg PO QDAY 10/29/23 12/09/23 History Q-10) ezetimibe 10 mg tablet 10 mg PO DAILY 10/29/23 12/09/23 History finasteride 5 mg tablet 5 mg PO DAILY 10/29/23 12/09/23 History metformin 1,000 mg tablet 1,000 mg PO BIDWM 10/29/23 12/09/23 History tamsulosin 0.4 mg capsule 0.8 mg PO DAILY 10/29/23 12/09/23 History aspirin 81 mg capsule 81 mg PO DAILY 12/08/23 12/09/23 History cyanocobalamin (vitamin B-12) 50 50 mcg PO DAILY 12/08/23 12/09/23 History mcg lozenges empagliflozin 25 mg tablet 25 mg PO DAILY 12/08/23 12/09/23 History (Jardiance) Allergies Allergy/AdvReac Type Severity Reaction Status Date / Time No Known Drug Allergies Allergy Verified 12/09/23 09:25 Exam Narrative: Exam Narrative: He is alert and appears in no distress. Oropharynx is normal. Neck is supple without mass or adenopathy. Respirations are clear to auscultation. Cardiovascular: S1, S2, regular rate and rhythm. No murmur gallop or rub. Abdomen: Bowel sounds active. Abdomen is soft without tenderness or mass. Extremities are normal without edema. Intact pulses. Right hip with the mondragon ge over his surgical incision without drainage or erythema. Intact strength in feet and ankles bilaterally with flexion extension Const: Vital Signs, click to edit/add: Vital Signs - 24 hr 12/09/23 09:38 12/09/23 11:26 12/09/23 11:30 Temperature 97.8 F Pulse Rate 77 72 62 Respiratory Rate 16 16 16 Blood Pressure 122/74 129/65 132/74 Pulse Oximetry 96 96 97 Oxygen Delivery Me thod Room Air Nasal Cannula Nasal Cannula Oxygen Flow Rate 3 3 12/09/23 14:21 12/09/23 14:25 12/09/23 14:30 Temperature 97.4 F L Pulse Rate 70 71 69 Respiratory Rate 14 14 16 Blood Pressure 147/75 H 153/69 H 145/79 H Pulse Oximetry 95 94 94 Oxygen Delivery Me thod Room Air Room Air Room Air Oxygen Flow Rate 12/09/23 14:35 12/09/23 14:40 12/09/23 14:45 Temperature Pulse Rate 65 66 67 Respiratory Rate 16 16 16 Blood Pressure 144/67 H 143/82 H 140/69 H Pulse Oximetry 95 90 96 Oxygen Delivery Me thod Room Air Nasal Cannula Nasal Cannula Oxygen Flow Rate 2 2 12/09/23 14:50 12/09/23 14:55 12/09/23 15:00 Temperature Pulse Rate 68 69 67 Respiratory Rate 16 16 16 Blood Pressure 140/69 H 151/74 H 151/65 H Pulse Oximetry 94 96 96 Oxygen Delivery Me thod Room Air Room Air Room Air Oxygen Flow Rate 12/09/23 15:05 12/09/23 15:10 12/09/23 15:30 Temperature 97.0 F L 96.8 F L 96.5 F L Pulse Rate 71 74 79 Respiratory Rate 16 16 16 Blood Pressure 143/71 H 137/64 143/63 H Pulse Oximetry 94 93 93 Oxygen Delivery Me thod Room Air Room Air Room Air Oxygen Flow Rate 12/09/23 15:45 12/09/23 16:00 12/09/23 16:15 Temperature 97.3 F L Pulse Rate 84 82 80 Respiratory Rate 16 16 16 Blood Pressure 147/65 H 145/65 H 140/64 H Pulse Oximetry 98 Oxygen Delivery Me thod Room Air Room Air Room Air Oxygen Flow Rate 2 2 12/09/23 16:45 12/09/23 17:09 12/09/23 17:15 Temperature 96.8 F L 97.4 F L Pulse Rate 91 74 91 Respiratory Rate 16 16 16 Blood Pressure 141/62 H 137/64 Pulse Oximetry 93 94 Oxygen Delivery Me thod Room Air Room Air Room Air Oxygen Flow Rate 12/09/23 18:15 12/09/23 19:15 Temperature 97.6 F 97.8 F Pulse Rate 94 74 Respiratory Rate 16 16 Blood Pressure 149/77 H 145/84 H Pulse Oximetry 97 96 Oxygen Delivery Me thod Room Air Room Air Oxygen Flow Rate Documenting provider has reviewed patient's vital signs: yes Assessment and Plan Assessment and plan (1) S/P total right hip arthroplasty: Problem comment: Dr. Vasques, 12/09/2023, no complications Status: Acute Assessment and Plan: Routine management of pain. Routine therapy. Anticipate discharge to home with (2) Type 2 diabetes mellitus: Problem comment: Monitor blood sugars. Resume home medications when he begins to eat, likely tomorrow. Sliding scale insulin as needed. Status: Acute Plan Patient is admitted for management postoperative cares for hip arthroplasty and management of chronic medical problems. Gently doing well at this point. Anticipate discharge to home with continued to do well. Total Time Spent Total Time Spent: Total time spent today is 40 minutes, 30 minutes in coordination of care discussing with patient and other providers ongoing evaluation management of postoperative care and chronic medical problems
[2023-12-09] MEDS: SENNOSIDES 1 TAB TABLET 2 TAB PO (21:11)
[2023-12-10] MEDS: OXYCODONE 5 MG TABLET PO ×2 (01:05→08:09)
[2023-12-10 03:13] VITALS: BP 121/69; PULSE 67; RESP 16; TEMP 36.8; O2SAT 99
[2023-12-10] MEDS: CEFAZOLIN 2 GM in 0.9 % SODIUM CHLORIDE Mini-bag 100 ML IVPB (03:29)
[2023-12-10] MEDS: ACETAMINOPHEN 500 MG TABLET 1000 MG PO (05:17)
[2023-12-10 06:39] LABS: Basophils Percent Auto 0.1 % (0.0-3.0); Hematocrit 36.7 % (37.0-53.0); Immature Granulocytes Pct Auto 0.3 %; Lymphocytes Percent Auto 6.7 % (20-44); Mean Corpuscular HGB Conc 33 gm/dL (32-36); Mean Corpuscular Hemoglobin 30 pg (26-34); Mean Corpuscular Volume 91 fL (80-100); Monocytes Percent Auto 8.9 % (0.0-11.0); Platelet Count* 265 K/uL (140-440); RDW Coefficient of Variation % 13.5 % (11.5-15.5); Red Blood Count 4.03 m/uL (4.30-5.90); White Blood Count* 14.97 K/uL (4.50-11.00)
[2023-12-10 06:51] LABS: Slide Review Reflex No
[2023-12-10 07:20] LABS: Sodium* 136 mmol/L (135-149)
[2023-12-10 07:21] LABS: Potassium* 4.9 mmol/L (3.6-5.1)
[2023-12-10 07:24] LABS: Blood Urea Nitrogen* 37 mg/dL (7-30); Creatinine* 1.2 mg/dL (0.5-1.5); Est. Creatinine Clearance* 47.26; Estimated Glomerular Filt Rate 63 ml/min
[2023-12-10 07:25] VITALS: BP 117/56; PULSE 63; RESP 16; TEMP 37.1; O2SAT 96
--- NOTE | 2023-12-10 07:34 | PC.NURSE ---
End of shift note [id number]: Pt noted to be alert & oriented x 4 and able to make needs known. He is slightly [place] and is pleasant when interacting with staff. Dressing to R hip noted to be C/D/I upon inspection. CMS to RLE intact with plexi pulses worn to bilateral feet. LS clear and bowel sounds active x 4. Pt tolerating food and po fluids. VSS and pt has been afebrile throughout the shift. Pain has been controlled with rest, repositioning, ice PRN Oxycodone and scheduled Tylenol with pt rating pain to R hip/leg 5/10 at its highest. Pt has been denying nausea when asked with no vomiting noted throughout the shift. Pt continent of bladder and has been using call light appropriately. IV to L forearm patent and SL. ?
[2023-12-10] MEDS: METFORMIN 1,000 MG TABLET 1000 MG PO (08:10)
--- NOTE | 2023-12-10 08:11 | PM.ORPN ---
Subjective Subjective Time Seen by Provider: 07:40 Date Seen: 12/10/23 Principal diagnosis: Status post right hip replacement Interval history: Ray is feeling well this morning. His nausea has ceased. He is having breakfast. He has been ambulating well and looking forward to discharge today. Ortho Exam Narrative Exam Narrative: Alert and oriented x3. Patient is in no acute distress. Converses without labored breathing. Hearing is grossly intact. Ambulates with a walker. Examination of the right hip shows the dressing is intact. Mild edema. No erythema or warmth or sign of infection. Good quad strength. CMS intact right lower extremity. Bilateral calves are soft and nontender. Const Vital Signs, click to edit/add: Vital Signs - 24 hr 12/09/23 09:38 12/09/23 11:26 12/09/23 11:30 Temperature 97.8 F Pulse Rate 77 72 62 Pulse Rate [Pulse Oximeter] Respiratory Rate 16 16 16 Blood Pressure 122/74 129/65 132/74 Blood Pressure [Right Arm] Pulse Oximetry 96 96 97 Oxygen Delivery Method Room Air Nasal Cannula Nasal Cannula Oxygen Flow Rate 3 3 12/09/23 14:21 12/09/23 14:25 12/09/23 14:30 Temperature 97.4 F L Pulse Rate 70 71 69 Pulse Rate [Pulse Oximeter] Respiratory Rate 14 14 16 Blood Pressure 147/75 H 153/69 H 145/79 H Blood Pressure [Right Arm] Pulse Oximetry 95 94 94 Oxygen Delivery Method Room Air Room Air Room Air Oxygen Flow Rate 12/09/23 14:35 12/09/23 14:40 12/09/23 14:45 Temperature Pulse Rate 65 66 67 Pulse Rate [Pulse Oximeter] Respiratory Rate 16 16 16 Blood Pressure 144/67 H 143/82 H 140/69 H Blood Pressure [Right Arm] Pulse Oximetry 95 90 96 Oxygen Delivery Method Room Air Nasal Cannula Nasal Cannula Oxygen Flow Rate 2 2 12/09/23 14:50 12/09/23 14:55 12/09/23 15:00 Temperature Pulse Rate 68 69 67 Pulse Rate [Pulse Oximeter] Respiratory Rate 16 16 16 Blood Pressure 140/69 H 151/74 H 151/65 H Blood Pressure [Right Arm] Pulse Oximetry 94 96 96 Oxygen Delivery Method Room Air Room Air Room Air Oxygen Flow Rate 12/09/23 15:05 12/09/23 15:10 12/09/23 15:30 Temperature 97.0 F L 96.8 F L 96.5 F L Pulse Rate 71 74 79 Pulse Rate [Pulse Oximeter] Respiratory Rate 16 16 16 Blood Pressure 143/71 H 137/64 143/63 H Blood Pressure [Right Arm] Pulse Oximetry 94 93 93 Oxygen Delivery Method Room Air Room Air Room Air Oxygen Flow Rate 12/09/23 15:45 12/09/23 16:00 12/09/23 16:15 Temperature 97.3 F L Pulse Rate 84 82 80 Pulse Rate [Pulse Oximeter] Respiratory Rate 16 16 16 Blood Pressure 147/65 H 145/65 H 140/64 H Blood Pressure [Right Arm] Pulse Oximetry 98 Oxygen Delivery Method Room Air Room Air Room Air Oxygen Flow Rate 2 2 12/09/23 16:45 12/09/23 17:09 12/09/23 17:15 Temperature 96.8 F L 97.4 F L Pulse Rate 91 74 91 Pulse Rate [Pulse Oximeter] Respiratory Rate 16 16 16 Blood Pressure 141/62 H 137/64 Blood Pressure [Right Arm] Pulse Oximetry 93 94 Oxygen Delivery Method Room Air Room Air Room Air Oxygen Flow Rate 12/09/23 18:15 12/09/23 19:15 12/09/23 20:15 Temperature 97.6 F 97.8 F 98 F Pulse Rate 94 74 70 Pulse Rate [Pulse Oximeter] Respiratory Rate 16 16 16 Blood Pressure 149/77 H 145/84 H 144/85 H Blood Pressure [Right Arm] Pulse Oximetry 97 96 96 Oxygen Delivery Method Room Air Room Air Room Air Oxygen Flow Rate 2 12/09/23 21:15 12/09/23 23:00 12/09/23 23:36 Temperature 97.6 F 97.8 F Pulse Rate 90 Pulse Rate [Pulse Oximeter] 87 Respiratory Rate 16 16 16 Blood Pressure 119/70 Blood Pressure [Right Arm] 123/65 Pulse Oximetry 92 99 Oxygen Delivery Method Room Air Room Air Oxygen Flow Rate 2 12/10/23 03:13 Temperature 98.2 F Pulse Rate Pulse Rate [Pulse Oximeter] 67 Respiratory Rate 16 Blood Pressure Blood Pressure [Right Arm] 121/69 Pulse Oximetry 99 Oxygen Delivery Method Room Air Oxygen Flow Rate Assessment and Plan Assessment and plan (1) S/P total right hip arthroplasty: Problem details: Dr. Vasques, 12/09/2023 Status: Acute Assessment and Plan: Plan for discharge is today, and when they meets discharge criteria. DVT prophylaxis upon discharge Xarelto 10 mg daily for 5 days, then aspirin 81 mg twice daily for 30 days. Frequent ambulation is encouraged, every hour throughout the day. Remove dressing 1 week. Observe wound and phone Orthopedics with any questions or concerns Use Ice on operative hip unrestricted. Return to clinic in 1 week with PA for a wound check Return to clinic in 6 weeks with surgeon Minimize narcotic use. Wean off and discontinue soon as possible. Activities as tolerated. No strenuous activity. Attend outpt PT
[2023-12-10] MEDS: INSULIN ASPART 100 UNIT/ML SUBCUT (08:12)
[2023-12-10] MEDS: FINASTERIDE 5 MG TABLET PO (08:37)
[2023-12-10] MEDS: EMPAGLIFLOZIN 10 MG TABLET 25 MG PO (08:37)
[2023-12-10] MEDS: EZETIMIBE 10 MG TABLET PO (08:38)
[2023-12-10] MEDS: TAMSULOSIN HCL 0.4 MG CAPSULE 0.8 MG PO (08:38)
[2023-12-10] MEDS: RIVAROXABAN 10 MG TABLET PO (08:38)
[2023-12-10] MEDS: SENNOSIDES 1 TAB TABLET 2 TAB PO (08:41)
--- NOTE | 2023-12-10 13:21 | PC.NURSE ---
Discharge summary: The pt has been pleasant and cooperative; Up to the BR SBA/ IND with a walker; the surgical dressing to the right hip has been C/D/I. The pt has been reporting very minimal pain; PRN pain medication was given Before PT; the Pt tolerated the activity. Discharge instructions and teaching was completed. The patient and the Pt's son verbalize understanding the teaching. All Pt belong sent home with the patient. The pt appeared without any acute distress at discharge time.
== END 2023-12-10 10:30 | disposition home or self-care (01) ==
LOC: OR 09:05 → MEDSURG 09:08
PROVIDERS: PCP Family Medicine; Visit Provider Orthopaedic Surgery
PROC: (CPT 27130; principal; 2023-12-09 11:15)
DX: M16.11 Unilateral primary osteoarthritis, right hip (principal); G89.18 Other acute postprocedural pain; I12.9 Hypertensive chronic kidney disease with stage 1 through stage 4 chronic kidney disease, or unspecified chronic kidney disease; E11.22 Type 2 diabetes mellitus with diabetic chronic kidney disease; N18.31 Chronic kidney disease, stage 3a; Z79.84 Long term (current) use of oral hypoglycemic drugs
CPT/HCPCS: 27130; 01214; 36415; 64450; 73501; 76942; 82565; 82962; 84132; 84295; 84520; 85025; 86850; 86900; 86901; 97110; 97116; 97161; 97165; 97530; 99100; A9270; C1776; J0690; J1100; J1170; J2250; J2405; J2795; J3010; J7120